=== PATIENT | male | born 1975 | race Caucasian/White ===

== ENCOUNTER 2016-12-22 09:08 | Day surgery (SDC) | payer MEDICAID ==
[~2016-12-22 09:08] MED LIST: HEPARIN SODIUM,PORCINE 5,000 UNIT/ML 1 ML VIAL SQ ONE; Pre Op ABX Message 1 EACH MISC MISCELLANE ONE
[2016-12-22] MEDS ORDERED: ONDANSETRON 4 MG/2 ML VIAL IVP ONE (09:29)
[2016-12-22] MEDS ORDERED: LACTATED RINGERS 1,000 ML IV SCH (09:29)
[2016-12-22] MEDS ORDERED: DEXAMETHASONE SOD PHOSPHATE 10 MG/ML 1 ML VIAL IV ONE (09:29)
[2016-12-22] MEDS ORDERED: HYDROmorphone 1 MG/ML 1 ML SYRINGE IVP PRN (09:29)
[2016-12-22] MEDS ORDERED: LIDOCAINE 1% 20 ML VIAL (10MG/ML) FOR IV START INTRADERMA ONE (09:58)
[2016-12-22] MEDS ORDERED: ceFAZolin 3 GM in SODIUM CHLORIDE 0.9% 100 ML IVPB ONE (10:00)
[2016-12-22 10:04] LABS: Glucose,Whole Blood 144 mg/dL (75-99)
--- NOTE | 2016-12-22 11:22 | P.GSHP ---
History of Present Illness H&P Date: 12/22/16 Chief Complaint: Incisional hernia 's is a 41-year-old male presents today for laparoscopic robotic-assisted repair of incisional hernia. Patient developed an incisional hernia at his then umbilicus after laparoscopic cholecystectomy. - Constitutional Constitutional: Reports as per HPI Past Medical History Past Medical History: No Reported History Additional Past Medical History / Comment(s): varicose veins History of Any Multi-Drug Resistant Organisms: None Reported Past Surgical History: Back Surgery, Cholecystectomy Past Psychological History: No Psychological Hx Reported Smoking Status: Never smoker Past Alcohol Use History: Occasional Past Drug Use History: None Reported Medications and Allergies Home Medications Medication Instructions Recorded Confirmed Type Aspirin 324 mg PO DAILY 10/14/15 10/14/15 History metFORMIN HCL [Metformin HCl] 500 mg PO BID 12/22/16 12/22/16 History Allergies Allergy/AdvReac Type Severity Reaction Status Date / Time pseudoephedrine HCl AdvReac DIZZY Verified 10/14/15 17:47 [From [facility]] Surgical - Exam Vital Signs Temp Pulse Resp BP Pulse Ox 97.7 F 77 18 144/84 95 12/22/16 09:42 12/22/16 09:42 12/22/16 09:42 12/22/16 09:42 12/22/16 09:42 - General well developed, no distress - Eyes PERRL - ENT normal pinna - Neck no masses - Respiratory normal expansion - Cardiovascular Rhythm: regular - Abdomen Abdomen: soft, non tender Hernia: incisional, reducible Results - Labs Abnormal Lab Results - Last 24 Hours (Table) 12/22/16 Range/Units 09:54 POC Glucose (mg/dL) 144 H (75-99) mg/dL Assessment and Plan Plan: Incisional hernia. We'll perform laparoscopic robotic-assisted repair.
[2016-12-22] MEDS ORDERED: MIDAZOLAM 2 MG/2 ML VIAL ONE (11:30)
[2016-12-22] MEDS ORDERED: LIDOCAINE 1% INJ 10MG/ML (20 ML MDV) ONE (11:30)
[2016-12-22] MEDS ORDERED: NEOSTIGMINE 1 MG/ML 10 ML VIAL ONE (11:30)
[2016-12-22] MEDS ORDERED: SUCCINYLCHOLINE CHLORIDE VIAL 200 MG/10 ML VIAL IV ONE (11:30)
[2016-12-22] MEDS ORDERED: ePHEDrine 50 MG/ML 1 ML AMP ONE (11:30)
[2016-12-22] MEDS ORDERED: HYDROmorphone (PF) 1 MG/ML ONE (11:30)
[2016-12-22] MEDS ORDERED: GLYCOPYRROLATE 0.2 MG/ML 2 ML VIAL ONE (11:30)
[2016-12-22] MEDS ORDERED: PROPOFOL 10 MG/ML 20 ML VIAL IV ONE (11:30)
[2016-12-22] MEDS ORDERED: ROCURONIUM BROMIDE 10 MG/ML 10 ML VIAL IV ONE (11:30)
[2016-12-22] MEDS ORDERED: fentaNYL (PF) 50 MCG/ML 2 ML AMP ONE (11:30)
[2016-12-22] MEDS ORDERED: BUPIVACAIN-EPI 0.25%-1:200,000 30 ML VIAL SQ ONE (11:55)
[2016-12-22] MEDS ORDERED: LACTATED RINGERS 1,000 ML IV ONE (12:33)
--- NOTE | 2016-12-22 12:55 | P.OP ---
Date of Procedure: 12/22/16 Preoperative Diagnosis: Incarcerated incisional hernia Postoperative Diagnosis: Incarcerated incisional hernia Procedure(s) Performed: Laparoscopic robotic-assisted repair of incarcerated incisional hernia Partial greater omentectomy Implants: Anesthesia: JOEL Surgeon: Héctor Yen Estimated Blood Loss (ml): 10 Pathology: other (Greater omentum) Condition: stable Disposition: PACU Indications for Procedure: Operative Findings: Description of Procedure: The patient's placed on the operative table in the supine position. He received general anesthesia. His abdomen was prepped and draped usual sterile fashion. Patient had incarcerated incisional hernia located above. Using a 5 mm optical trocar the peritoneal cavity is entered in the left upper quadrant after adequate insufflation a another 8 mm trocar was placed in the left lower quadrant and a 12 mm trochars placed left lateral position and the initial 5 mm trocar was replaced with millimeters robotic trocar. A shunt placed left side up position and then docked to the robot. Patient had an incarcerated hernia. There was omentum seen going into the hernia. Using the robotic cautery and fenestrated bipolar the omentum was reduced. A portion of it was not viable and this was excised. The fascial defect was then closed using oh the lock suture and then the repair was buttressed with ventral light ST mesh secured with 20 the lock suture. The patient was undocked the robot. At this point the needles were withdrawn. The omentum was brought up through a Endo Catch bag and then the the 12 mm trocar site was closed with Salvador Nugent and 0 Ethibond suture. The other trochars withdrawn. Skin was closed interrupted 3- 0 Monocryl suture Dermabond was applied. Patient top she will was sent to recovery in stable condition.
[2016-12-22 13:28] VITALS: TEMP 97.2
[2016-12-22 13:46] LABS: Glucose,Whole Blood 176 mg/dL (75-99)
[2016-12-22] MEDS ORDERED: KETOROLAC 30 MG/ML 1 ML VIAL IVP ONE (13:56)
[2016-12-22 14:27] VITALS: RESP 18
[2016-12-22 14:59] VITALS: PULSE 78
[2016-12-22 15:00] VITALS: BP 138/89
== END 2016-12-22 15:14 | disposition home or self-care (01) ==
LOC: OR 09:08
PROVIDERS: ATTEND Surgery
DX: K43.0 Incisional hernia with obstruction, without gangrene (principal); Z79.82 Long term (current) use of aspirin; E11.9 Type 2 diabetes mellitus without complications; Z79.84 Long term (current) use of oral hypoglycemic drugs; Z79.899 Other long term (current) drug therapy; Z88.8 Allergy status to other drugs, medicaments and biological substances
CPT/HCPCS: 49655; S2900; 88305

== ENCOUNTER → 2018-03-31 | Outpatient (CLI) | payer MEDICAID | END | disposition home or self-care (01) | LOC: LABPAT 10:59 | PROVIDERS: ATTEND Surgery | DX: Z01.818 Encounter for other preprocedural examination (principal) | CPT/HCPCS: 93005 ==

== ENCOUNTER 2018-04-01 06:51 | Day surgery (SDC) | payer MEDICAID ==
[2018-03-29 10:47] VITALS: BMI 51.2
[~2018-04-01 06:51] MED LIST changes: +DEXAMETHASONE SOD PHOSPHATE 10 MG/ML 1 ML VIAL IV ONE; +LACTATED RINGERS 1,000 ML IV SCH; +LIDOCAINE 1% 20 ML VIAL (10MG/ML) FOR IV START INTRADERMA PRN; +MIDAZOLAM 2 MG/2 ML VIAL IV PRN; +fentaNYL (PF) 50 MCG/ML 2 ML AMP IV PRN
[2018-04-01 07:14] VITALS: RESP 16; TEMP 98.1
[2018-04-01 07:15] LABS: Glucose,Whole Blood 245 mg/dL (75-99)
--- NOTE | 2018-04-01 08:01 | P.GSHP ---
History of Present Illness H&P Date: 04/01/18 Chief Complaint: Lipoma of back This is a 43-year-old male who's developed a 10 cm back lipoma. He presents today for excision. Past Medical History Past Medical History: Diabetes Mellitus Additional Past Medical History / Comment(s): varicose veins History of Any Multi-Drug Resistant Organisms: None Reported Past Surgical History: Back Surgery, Cholecystectomy, Hernia Repair Past Anesthesia/Blood Transfusion Reactions: No Reported Reaction Smoking Status: Never smoker - Past Family History Mother Family Medical History: No Reported History Medications and Allergies Home Medications Medication Instructions Recorded Confirmed Type metFORMIN HCL [Metformin HCl] 500 mg PO BID 12/22/16 04/01/18 History Diclofenac Sodium [Voltaren] 75 mg PO BID 03/29/18 04/01/18 History tiZANidine [Zanaflex] 4 mg PO Q8HR PRN 03/29/18 04/01/18 History Allergies Allergy/AdvReac Type Severity Reaction Status Date / Time pseudoephedrine HCl AdvReac DIZZY Verified 03/29/18 10:41 [From [facility]] Surgical - Exam Vital Signs Temp Pulse Resp BP Pulse Ox 98.1 F 81 16 172/84 96 04/01/18 07:03 04/01/18 07:03 04/01/18 07:03 04/01/18 07:03 04/01/18 07:03 - General well developed, no distress - Eyes PERRL - ENT normal pinna - Neck no masses - Respiratory normal expansion - Cardiovascular Rhythm: regular - Abdomen Abdomen: soft, non tender - Integumentary 10 cm back lipoma. Results - Labs Abnormal Lab Results - Last 24 Hours (Table) 04/01/18 Range/Units 07:12 POC Glucose (mg/dL) 245 H (75-99) mg/dL Assessment and Plan Assessment: Back lipoma. We'll perform excision.
[2018-04-01] MEDS ORDERED: MIDAZOLAM 2 MG/2 ML VIAL ONE (08:04)
[2018-04-01] MEDS ORDERED: LIDOCAINE 1% INJ 10MG/ML (20 ML MDV) ONE (08:04)
[2018-04-01] MEDS ORDERED: KETAMINE 10 MG/ML 20 ML VIAL ONE (08:04)
[2018-04-01] MEDS ORDERED: fentaNYL (PF) 50 MCG/ML 2 ML AMP ONE (08:04)
[2018-04-01] MEDS ORDERED: PROPOFOL 10 MG/ML 20 ML VIAL IV ONE (08:04)
[2018-04-01] MEDS ORDERED: BUPIVACAIN-EPI 0.25%-1:200,000 30 ML VIAL SQ ONE ×3 (08:16→08:24)
[2018-04-01] MEDS ORDERED: SODIUM CHLORIDE 0.9% 50 ML with ceFAZolin 3,000 MG IV ONE ×4 (08:29)
--- NOTE | 2018-04-01 09:13 | P.OP ---
Date of Procedure: 04/01/18 Preoperative Diagnosis: Right back lipoma Postoperative Diagnosis: Right back lipoma Procedure(s) Performed: Excision of right back lipoma Anesthesia: MAC Surgeon: Héctor Yen Estimated Blood Loss (ml): 10 Pathology: other (Right back lipoma) Condition: stable Disposition: PACU Description of Procedure: Patient's placed on the operative table in the right lateral position. His right back was prepped and draped usual fashion. The skin was anesthetized 1% local Xylocaine. A skin incision was made 15 blade. Then using cautery and subcutaneous tissue divided. The lipoma was visualized. Lipoma was dissected using cautery. Hemostasis was achieved with cautery. The deep layer was closed with 0 Vicryl. Skin was closed interrupted 3-0 Monocryl suture Dermabond was applied. Patient top she will was sent to recovery in stable condition.
[2018-04-01 09:20] LABS: Glucose,Whole Blood 273 mg/dL (75-99)
[2018-04-01] MEDS ORDERED: INSULIN ASPART 100 UNIT/ML 1 ML 10 ML VIAL SQ ONE (09:33)
[2018-04-01 10:03] LABS: Glucose,Whole Blood 326 mg/dL (75-99)
[2018-04-01 10:18] VITALS: BP 123/78; PULSE 72
--- NOTE | 2018-04-05 19:17 | CDI ---
Outpatient Documentation Clarification Form Date: 04/05/18 CDS/Urban Planning Professor Name: Nanci Robins Phone: If any questions, call Gisele Castro Machining Technician at [phone] Patient Name: Walt Wong Admit Date: 04/01/18 Discharge Date: 04/01/18 ATTENTION: The [facility] Coding Staff appreciate your assistance in clarifying documentation. Please respond to the clarification below the line at the bottom and electronically sign. The [facility] Coding staff will review the response and follow-up if needed. Please note: Queries are made part of the Legal Health Record. If you have any questions, please contact the Machining Technician. Dear Dr. Yen, 1. What is the size of the excised lipoma, including margins? 2. What is the size of the closure/repair? Thank you for your kind consideration. The excised lipoma was approximately 7 x 4 cm. The closure was approximately 10 cm in length. MTDD
== END 2018-04-01 11:17 | disposition home or self-care (01) ==
LOC: OR 06:51
PROVIDERS: ATTEND Surgery
DX: D17.1 Benign lipomatous neoplasm of skin and subcutaneous tissue of trunk (principal); E11.9 Type 2 diabetes mellitus without complications; I10 Essential (primary) hypertension; E66.01 Morbid (severe) obesity due to excess calories; Z68.43 Body mass index [BMI] 50.0-59.9, adult; Z79.84 Long term (current) use of oral hypoglycemic drugs; Z79.899 Other long term (current) drug therapy; Z90.49 Acquired absence of other specified parts of digestive tract; Z88.8 Allergy status to other drugs, medicaments and biological substances
CPT/HCPCS: 11406; 12034; 88304; J2250; J1644; J1100; J2001; J3010; J0690; J2704

== ENCOUNTER 2018-04-07 18:50 | Emergency (ER) | payer MEDICAID ==
[2018-04-07 18:57] VITALS: RESP 18
--- NOTE | 2018-04-07 20:17 | ED ---
General Adult HPI - General Chief complaint: Recheck/Abnormal Lab/Rx Stated complaint: post op issue Time Seen by Provider: 04/07/18 19:09 Source: patient Mode of arrival: ambulatory Limitations: no limitations - History of Present Illness Initial comments: 43-year-old male patient presents to the emergency department today for drainage from a surgical incision site. Patient had a lipoma removed from the right side of his mid back [address] Yen. Patient states that things have been going well after the surgery however today he started to have drainage from the site. Patient states that he can feel the drainage pouring down his back and it did soak through his shirt. He states that the drainage did have some presence of blood however did not seem to have pus. Patient denies any fevers or chills. Denies any significant pain to the site. States that he was evaluated by Dr. Yen this morning and his exam was fine. Patient denies any recent rash, shortness breath, chest pain, abdominal pain, nausea, vomiting, diarrhea, constipation, back pain, numbness, tingling, dizziness, weakness, hematuria, dysuria, urinary urgency, urinary frequency, headache, visual changes, or any other complaints. - Related Data Home Medications Medication Instructions Recorded Confirmed metFORMIN HCL [Metformin HCl] 500 mg PO BID 12/22/16 04/07/18 Previous Rx's Medication Instructions Recorded Cephalexin [Keflex] 500 mg PO Q6H #40 cap 04/07/18 Allergies Allergy/AdvReac Type Severity Reaction Status Date / Time pseudoephedrine HCl AdvReac DIZZY Verified 04/07/18 19:14 [From [facility]] Review of Systems ROS Statement: Those systems with pertinent positive or pertinent negative responses have been documented in the HPI. ROS Other: All systems not noted in ROS Statement are negative. Past Medical History Past Medical History: Diabetes Mellitus Additional Past Medical History / Comment(s): varicose veins History of Any Multi-Drug Resistant Organisms: None Reported Past Surgical History: Back Surgery, Cholecystectomy, Hernia Repair Additional Past Surgical History / Comment(s): lipoma removed on back Past Anesthesia/Blood Transfusion Reactions: No Reported Reaction Past Psychological History: No Psychological Hx Reported Smoking Status: Never smoker Past Alcohol Use History: Occasional Past Drug Use History: None Reported - Past Family History Mother Family Medical History: No Reported History General Exam Limitations: no limitations General appearance: alert, in no apparent distress, other (This is a well- developed, well-nourished adult male patient in no acute distress. Vital signs upon presentation are temperature 98.3F, pulse 90, respirations 18, blood pressure 110/77, pulse ox 96% on room air.) Eye exam: Present: normal appearance, PERRL, EOMI. Absent: scleral icterus, conjunctival injection, periorbital swelling ENT exam: Present: normal exam, normal oropharynx, mucous membranes moist Respiratory exam: Present: normal lung sounds bilaterally. Absent: respiratory distress, wheezes, rales, rhonchi, stridor Cardiovascular Exam: Present: regular rate, normal rhythm, normal heart sounds. Absent: systolic murmur, diastolic murmur, rubs, gallop, clicks GI/Abdominal exam: Present: soft, normal bowel sounds. Absent: distended, tenderness, guarding, rebound, rigid Back exam: Present: other (Patient has a 4 cm incision to the right mid back. There is some surrounding soft tissue swelling. Small amount of serosanguineous drainage. There is surrounding erythema, warmth to touch. No evidence of purulent drainage.) Neurological exam: Present: alert, oriented X3, CN II-XII intact Psychiatric exam: Present: normal affect, normal mood Skin exam: Present: warm, dry, intact, normal color. Absent: rash Course Vital Signs 04/07/18 04/07/18 18:55 20:39 Temperature 98.3 F 99.1 F Pulse Rate 90 84 Respiratory 18 18 Rate Blood Pressure 110/77 141/74 O2 Sat by Pulse 96 96 Oximetry Medical Decision Making - Medical Decision Making 43-year-old male patient presented to the emergency department today for evaluation of drainage from an incision to his right back. Physical examination did reveal a 4 cm vertical incision to the right mid back. There was a small amount of serosanguineous drainage. Minimal surrounding erythema and some soft tissue swelling. Patient is afebrile, vital signs are stable. We did discuss that his symptoms most likely related to ruptured seroma. Given the presence of erythema surrounding the incision site we will treat her for mild cellulitis. Patient is instructed to follow-up with Dr. Yen for recheck as soon as possible. Return parameters were discussed in detail. He verbalizes understanding and agrees with this plan. Disposition Clinical Impression: Seroma Disposition: HOME SELF-CARE Condition: Good Instructions: Seroma (DC) Additional Instructions: Take medications as directed. Follow-up with your surgeon for recheck as an as possible. Return here immediately for any new, worsening, or concerning symptoms. Prescriptions: Cephalexin [Keflex] 500 mg PO Q6H #40 cap Is patient prescribed a controlled substance at d/c from ED?: No Referrals: Jayce Barrow MD [Primary Care Provider] - 1-2 days Héctor Yen MD [STAFF PHYSICIAN] - 1-2 days Time of Disposition: 20:17
[2018-04-07] MEDS ORDERED: CEPHALEXIN 500MG STARTER PACK 4 CAP BTL PO STA (20:18)
[2018-04-07 20:41] VITALS: BP 141/74; PULSE 84; TEMP 99.1
== END 2018-04-07 20:43 | disposition home or self-care (01) ==
LOC: EC 18:50
DX: L76.34 Postprocedural seroma of skin and subcutaneous tissue following other procedure (principal); Y83.9 Surgical procedure, unspecified as the cause of abnormal reaction of the patient, or of later complication, without mention of misadventure at the time of the procedure; E11.9 Type 2 diabetes mellitus without complications; Z79.84 Long term (current) use of oral hypoglycemic drugs; Z88.8 Allergy status to other drugs, medicaments and biological substances
CPT/HCPCS: 99282

== ENCOUNTER 2018-04-13 11:51 | Emergency (ER) | payer MEDICAID ==
[2018-04-13] MEDS ORDERED: SULFAMETHOX-TMP 800-160MG 1 EACH TAB PO STA (12:16)
[2018-04-13 12:24] VITALS: BP 135/84; PULSE 82; RESP 18; TEMP 96.6
--- NOTE | 2018-04-13 12:38 | ED ---
Skin/Abscess/FB HPI - General Chief complaint: Skin/Abscess/Foreign Body Stated complaint: Infection in incision Time Seen by Provider: 04/13/18 12:00 Source: patient, RN notes reviewed Mode of arrival: ambulatory Limitations: no limitations - History of Present Illness Initial comments: This is a 43-year-old male who presents to the emergency department with chief complaint of surgical incision infection. Patient states a week and half ago he had lipoma removal on the right side of his back performed by Dr. Yen. He states he was seen here last week when it began to drain serous fluid and he was placed on Keflex. Patient states that over the past 2 days the drainage has decreased but he noticed that the area became very swollen. He states today he bent over and the incision "burst" and started draining purulent material. Patient denies any fevers or chills. He states he has been taking his temperature and it has been normal. He denies any chest pain or shortness of breath, abdominal pain, nausea or vomiting. - Related Data Previous Rx's Medication Instructions Recorded Cephalexin [Keflex] 500 mg PO Q6H #40 cap 04/07/18 Sulfamethox-Tmp 800-160Mg [Bactrim 1 tab PO Q12HR #20 tab 04/13/18 DS 800-160 mg] Allergies Allergy/AdvReac Type Severity Reaction Status Date / Time pseudoephedrine HCl AdvReac DIZZY Verified 04/13/18 12:20 [From [facility]] Review of Systems ROS Statement: Those systems with pertinent positive or pertinent negative responses have been documented in the HPI. ROS Other: All systems not noted in ROS Statement are negative. Past Medical History Past Medical History: Diabetes Mellitus Additional Past Medical History / Comment(s): varicose veins History of Any Multi-Drug Resistant Organisms: None Reported Past Surgical History: Back Surgery, Cholecystectomy, Hernia Repair Additional Past Surgical History / Comment(s): lipoma removed on back Past Anesthesia/Blood Transfusion Reactions: No Reported Reaction Past Psychological History: No Psychological Hx Reported Smoking Status: Never smoker Past Alcohol Use History: Rare Past Drug Use History: None Reported - Past Family History Mother Family Medical History: No Reported History General Exam - General Exam Comments Initial Comments: General: Awake and alert, well-developed; in no apparent distress. Does not appear acutely ill. HEENT: Head atraumatic, normocephalic. Pupils are equal, round and reactive to light. Extraocular movements intact. Oropharynx moist without erythema or exudate. Neck: Supple. Normal ROM. Cardiovascular: Regular rate and rhythm. No murmurs, rubs or gallops. Chest symmetrical. Respiratory: Lungs clear to auscultation bilaterally. No wheezes, rales or rhonchi. Normal respiratory effort with no use of accessory muscles. Musculoskeletal: Normal ROM, no tenderness bilateral upper and lower extremities. Ambulating normally. Skin: Approximately 8 cm vertical incision right mid back with purulent drainage from the superior part of the incision. There is surrounding fluctuance and erythema. Neurological: Alert and oriented x3. CN II-XII grossly intact. Speech is fluent and answers are appropriate. No focal neuro deficits. Psychiatric: Normal mood and affect. No overt signs of depression or anxiety noted. Limitations: no limitations Course Vital Signs 04/13/18 12:16 Temperature 96.6 F L Pulse Rate 82 Respiratory 18 Rate Blood Pressure 135/84 Medical Decision Making - Medical Decision Making This is a 43-year-old male who presents to the emergency department with chief complaint of incision site infection. Patient has been taking Keflex since last week. Over the past 2 days patient has noticed swelling surrounding the incision site. Today, patient states that the incision site "burst" and started draining purulent material. A significant amount of purulent material was drained from the site. Aerobic wound culture is pending. Patient will be placed on Bactrim. Recommended he follow up with Dr. Yen in the office within 1-2 days. Patient has been afebrile. Vital signs are stable. Return parameters were discussed. Patient is in no acute distress and will be discharged home at this time. He is in agreement with plan and voices understanding. All questions were answered. Disposition Clinical Impression: Incisional abscess Disposition: HOME SELF-CARE Condition: Good Instructions: Abscess (ED), Warm Compress or Soak (ED) Additional Instructions: Please take medications as prescribed. As discussed, please follow-up with Dr. Yen within 1-2 days. Please follow up with primary care provider within 1- 2 days. Return to emergency department if symptoms should worsen or any concerns arise. Prescriptions: Sulfamethox-Tmp 800-160Mg [Bactrim DS 800-160 mg] 1 tab PO Q12HR #20 tab Is patient prescribed a controlled substance at d/c from ED?: No Referrals: Jayce Barrow MD [Primary Care Provider] - 1-2 days Time of Disposition: 12:37
== END 2018-04-13 12:47 | disposition home or self-care (01) ==
LOC: EC 11:51
DX: T81.4XXA Infection following a procedure, initial encounter (principal); Z88.8 Allergy status to other drugs, medicaments and biological substances; Z98.890 Other specified postprocedural states
CPT/HCPCS: 87070; 87205; 99283

== ENCOUNTER → 2018-04-19 | Outpatient (CLI) | payer MEDICAID ==
--- NOTE | 2018-04-19 13:53 | US ---
EXAMINATION TYPE: US liver DATE OF EXAM: 04/19/2018 COMPARISON: NONE CLINICAL HISTORY: Abnormal Liver Function Tests R94.5. elevated lft's, no symptoms, cholecystectomy EXAM MEASUREMENTS: Liver Length: 19.1 cm Gallbladder Wall: Surgically absent CBD: 0.5 cm Right Kidney: 14.2 x 5.8 x 7.1 cm *morbidly obese patient Pancreas: limited views seen Liver: difficult to penetrate due to habitus and bowel gas Gallbladder: Surgically absent Evidence for sonographic Jackson's sign: no CBD: wnl Right Kidney: large in size There is no ascites. IMPRESSION: Exam is limited technically. Findings suggest hepatocellular disease, possible hepatic st eatosis.
== END | disposition home or self-care (01) ==
LOC: RADUSWWP 07:43
PROVIDERS: ATTEND Internal Medicine
DX: R94.5 Abnormal results of liver function studies (principal)
CPT/HCPCS: 76705

== ENCOUNTER → 2018-04-26 | Outpatient (CLI) | payer MEDICAID ==
[2018-04-26 06:46] LABS: Blood Urea Nitrogen 15 mg/dL (9-20)
== END | disposition home or self-care (01) ==
LOC: RADMRIMAIN 06:14
PROVIDERS: ATTEND Physical Medicine & Rehabilitation
DX: M47.27 Other spondylosis with radiculopathy, lumbosacral region (principal); Z98.890 Other specified postprocedural states
CPT/HCPCS: 82565; 84520

== ENCOUNTER → 2018-07-28 | Outpatient (CLI) | payer MEDICAID ==
[2018-07-28 12:33] VITALS: BP 142/83; PULSE 88; RESP 16
--- NOTE | 2018-07-28 13:11 | P.PAINCN ---
History of Present Illness - Reason for Consult Consult date: 07/28/18 - History of Present Illness This is 43 years old male , with more than 6 months history of severe low back pain with radiation to the right lower extremity, pain started in January 2018, he denies any initiating event,the pain is constant interfering with quality of life, he denies any motor or sensory deficit, he denies any fever or night sweats, the pain mainly in the low back area radiated to the right buttock, and to the posterior aspect of his right lower extremity, patient reported that he had back surgery ( discectomy )more than 10 years ago, and he did fairly well after the surgery , and he used to have some back pain issues on and off , patient not able to function secondary to the intensity of the pain, patient denies any change in bowel movement or urination Past Medical History Past Medical History: Diabetes Mellitus Additional Past Medical History / Comment(s): varicose veins History of Any Multi-Drug Resistant Organisms: None Reported Past Surgical History: Back Surgery, Cholecystectomy, Hernia Repair Additional Past Surgical History / Comment(s): lipoma removed on back Past Anesthesia/Blood Transfusion Reactions: No Reported Reaction Past Psychological History: No Psychological Hx Reported Smoking Status: Never smoker Past Alcohol Use History: Rare Past Drug Use History: None Reported - Past Family History Mother Family Medical History: No Reported History Medications and Allergies Home Medications Medication Instructions Recorded Confirmed Type Ertugliflozin Pidolate [Steglatro] 15 mg PO DAILY 07/28/18 07/28/18 History Glimepiride [Amaryl] 1 mg PO BID 07/28/18 07/28/18 History Allergies Allergy/AdvReac Type Severity Reaction Status Date / Time pseudoephedrine HCl AdvReac DIZZY Verified 04/13/18 12:20 [From [facility]] Physical Exam Vitals: Vital Signs Pulse Resp BP Pulse Ox 07/28/18 12:21 88 16 142/83 96 Intake and Output 07/27/18 07/28/18 07/28/18 22:59 06:59 14:59 Other: Weight 181.437 kg Social history : not smoker , NO ETOH , NO Illegal drugs use . Review of Systems : 1- Constitutional : no chills , no fever , no night sweats , 2- Ears : no ear discharge , no change in hearing 3-Nose, Mouth ,Throat ; no bleeding gums, no sore throat , no epistaxis , 4-Cardiovascular : Denies chest pain, , no orthopnea , no palpitation 5-Respiratory : Denies cough , no dyspnea , no hemoptysis 6-Gastrointestinal :, no change in bowel habits , no coffee- ground emesis . 7-Genitourinary : No hematuria , no discharge , no incontinence, 8-Musculoskeletal : No gait dysfunction , report low back pain , 9- Neurological : no ataxia , no tremor , no sezure , 10-Psychatric , no suicidal ideation no hallucination 11- Endocrine : no cold intolerence , no polyuria , no polydypsia , 12-Hematologic : no easy bleeding , no easy brusing , 13-Allergic / immunology : no angioedema , no wheezing ,no allergic rhinitis 14-Integumentary : no brttle nails , no change hair / nails , no foot/leg ulcers . Physical Examinations : 1-Constitutional : Cooperative , not in acute distress . 2-HEENT : nech ; supple , no Lymphadenopathy , no Thyromegaly , :eyes , no icterus, no photophobia . ENT : , normal oropharynx , no Thrush 3- Respiratory : Chest clear to auscultations Bilaterally , no wheezing 4- Cardiovascular : regular rate and rhythem , S1 , S2 , no S3 , no S4. 5- Gastrointestinal: abdomen soft no tenderness , no organomegally . 6- Genitourinary : Defferred . 7-Integumentary : No cellulitis , no ulcers , normal skin turgor , no cyanotic . 8- neurologic : Cranial nerve II to XII intact , no focal neurological deffecit 9-psychatric : alert , oriented X 3 , appropriate affect , intact judgment and insight . 10-Lymphatic : no Lymphadenopathy. 11- musculoskeltal: Antalgic gait Lumber spine moter stegnth lower extremities ,thigh and legs 5/5 Right side , 5/5 Left side deep tendon reflexes : normal Knee Jerk , normal ankle Jerk positive lumber facet Loading Test on the right side Range of motion of the lumbar spine Flexion 30 degrees, extension 10 degrees strait leg raising test , positive at 30 degree on the right side Fabere test positive RT and positive LT . Sever tenderness over the Sacroiliac joint on the Right sides Results Comments: MRI of the lumbar spine= L4 5 disc herniation L5-S1 disc herniation and L4-L5 arthropathy and there is foraminal narrowing Assessment and Plan Plan: Assessment and plan=1-right sacroiliitis. 2-lumbar disc herniation at L4 5 and L5-S1. 3-lumbar spondylosis with lumbar facet arthropathy Patient had multifactorial cause causing his low back pain, but currently most of the pain is coming from the sacroiliac joint, patient could benefit from right sacroiliac joint steroid injection under fluoroscopy guidance, and if patient continued to have pain after the right sacroiliac joint injection, then we will go right -sided transforaminal epidural steroid injection L4 5 and L5-S1 , Time with Patient: Greater than 30 PQRS Measure Charge Sheet Measure #130: Documentation of Current Meds in Medical Chart: Patient's medications documented in chart Measure #226: Tobacco Use: Screen & Cessation Intervention: Pt not a tobacco user Measure #111: Pneumonia Vaccination: Pneumococcal vaccine NOT administered or previously given Measure #47: Advance Care Plan: Advance care planning discussed & documented, pt chose/unable to give Measure #412: Opioid Treatment Agreement: No documentation of signed opioid treatment agreement Measure #408: Opioid Therapy Follow-up Evaluation: Patient had NO f/u eval minimum every 3 months during opioid therapy Measure #317: Preventitive Care & Scrn High Bld Press & F/U: Pre-hypertensive or hypertensive BP documented, pt will f/u with PCP Measure #128: Body Mass Index (BMI) Screening & Follow-up: BMI documented ABOVE normal parameters - f/u documented Measure #131: Pain Assessment & Follow-up: Pain positive & plan documented, Follow-up scheduled Measure #431: Unhealthy Alcohol Use Preventative Care & Scrn: Patient not identified as an unhealthy alcohol user PQRS Narrative: Smoking Status Never smoker Do You Want the Pneumonia No Vaccine AT THIS TIME? Blood Pressure 142/83 Pain Intensity [Bilateral 2 Posterior Back] Scale Used Numeric (1 - 10) Hx Alcohol Use (MH) No Home Medications: Ambulatory Orders Ertugliflozin Pidolate [Steglatro] 15 mg PO DAILY 07/28/18 Glimepiride [Amaryl] 1 mg PO BID 07/28/18
== END | disposition home or self-care (01) ==
LOC: PNWHC3 12:13
PROVIDERS: ATTEND Specialist
DX: M51.27 Other intervertebral disc displacement, lumbosacral region (principal); M47.816 Spondylosis without myelopathy or radiculopathy, lumbar region; M46.96 Unspecified inflammatory spondylopathy, lumbar region; M46.1 Sacroiliitis, not elsewhere classified; E11.9 Type 2 diabetes mellitus without complications; Z88.8 Allergy status to other drugs, medicaments and biological substances; Z79.899 Other long term (current) drug therapy; Z90.49 Acquired absence of other specified parts of digestive tract; Z98.890 Other specified postprocedural states
CPT/HCPCS: 99211

== ENCOUNTER 2018-08-04 08:22 | Day surgery (SDC) | payer MEDICAID ==
[2018-08-02 08:57] VITALS: BMI 50.0
[~2018-08-04 08:22] MED LIST changes: -DEXAMETHASONE SOD PHOSPHATE 10 MG/ML 1 ML VIAL IV ONE; -HEPARIN SODIUM,PORCINE 5,000 UNIT/ML 1 ML VIAL SQ ONE; -LACTATED RINGERS 1,000 ML IV SCH; -LIDOCAINE 1% 20 ML VIAL (10MG/ML) FOR IV START INTRADERMA PRN; -MIDAZOLAM 2 MG/2 ML VIAL IV PRN; -Pre Op ABX Message 1 EACH MISC MISCELLANE ONE; +SODIUM CHLORIDE 0.9% 500 ML 500 ML IV SCH; -fentaNYL (PF) 50 MCG/ML 2 ML AMP IV PRN
[2018-08-04 08:39] VITALS: TEMP 97.5
[2018-08-04 08:48] LABS: Glucose,Whole Blood 163 mg/dL (75-99)
[2018-08-04] MEDS ORDERED: LIDOCAINE 1% 20 ML VIAL (10MG/ML) FOR IV START INTRADERMA ONE (08:48)
[2018-08-04] MEDS ORDERED: LACTATED RINGERS 1,000 ML IV ONE ×2 (08:48)
--- NOTE | 2018-08-04 09:17 | P.PCN ---
Date of Procedure: 08/04/18 Anesthesia: other (Conscious sedation) Description of Procedure: Procedure: Sacroiliac joint injection Preoperative diagnosis: Sacroiliitis Postoperative diagnosis: Sacroiliitis Complication: none Anesthesia: conscious sedation and local with 1% lidocaine Description of the procedure: procedure risk and benefits discussed with the patient, including but not limited, risk of infection and bleeding, and allergic reaction to the medication and incomplete pain relief. Patient agreed and signed consent. Patient was taken to the room and placed in a prone position. Chlorhexidine was used to cleanse the skin. Under sterile conditions patient skin was anesthetized 1% lidocaine. Subcutaneous tissues were also anesthetized with a total 5 mL of 1% lidocaine. After that 22-gauge spinal needle was advanced through the anesthetized location. Needle was advanced into the inferior portion of the sacroiliac joint. IV contrast was used to confirm spread within the joint. After adequate spread was achieved, 2.5 ML's of 0.5% ropivacaine with 40 mg of triamcinolone was injected into the joint. Patient tolerated the procedure well. Sent to the recovery room in stable condition. Patient will follow up in the clinic in 4-8 weeks' time
[2018-08-04] MEDS ORDERED: IV FLUID CONTINUATION 1,000 ML IV ONE (09:37)
[2018-08-04 10:07] VITALS: BP 125/74; PULSE 66; RESP 16
--- NOTE | 2018-08-04 12:01 | FL ---
Fluoroscopy HISTORY: Pain 6 seconds fluoroscopy time supplied to the referring clinician. 1 intraoperative C-arm images docume nt the procedure. See dictated report from anesthesia.
== END 2018-08-04 10:08 | disposition home or self-care (01) ==
LOC: ORPAIN 08:22
PROVIDERS: ATTEND Hospitalist
DX: M46.1 Sacroiliitis, not elsewhere classified (principal); M51.26 Other intervertebral disc displacement, lumbar region; M51.27 Other intervertebral disc displacement, lumbosacral region; M47.816 Spondylosis without myelopathy or radiculopathy, lumbar region; E11.9 Type 2 diabetes mellitus without complications; I83.90 Asymptomatic varicose veins of unspecified lower extremity; Z79.84 Long term (current) use of oral hypoglycemic drugs; Z79.899 Other long term (current) drug therapy; Z90.49 Acquired absence of other specified parts of digestive tract
CPT/HCPCS: 27096; J3301

== ENCOUNTER → 2018-09-07 | Outpatient (CLI) | payer MEDICAID ==
--- NOTE | 2018-09-07 17:20 | US ---
EXAMINATION TYPE: US venous doppler duplex LE LT DATE OF EXAM: 09/07/2018 4:49 PM COMPARISON: NONE CLINICAL HISTORY: M79.662,R22.42 PAIN AND SWELLIN IN BOTH LEGS. SIDE PERFORMED: Left TECHNIQUE: The lower extremity deep venous system is examined utilizing real time linear array sonog raul with graded compression, doppler sonography and color-flow sonography. VESSELS IMAGED: External Iliac Vein (EIV) Common Femoral Vein Deep Femoral Vein Greater Saphenous Vein * Femoral Vein Popliteal Vein Small Saphenous Vein * Proximal Calf Veins (* superficial vessels) Left Leg: Negative for DVT Suboptimal images limited by body habitus, 400#, no evience of thrombus as scanned IMPRESSION: No evidence of deep venous thrombosis in the left leg.
== END | disposition home or self-care (01) ==
LOC: RADUSWWP 16:27
PROVIDERS: ATTEND Internal Medicine
DX: M79.662 Pain in left lower leg (principal); R22.42 Localized swelling, mass and lump, left lower limb; Z88.8 Allergy status to other drugs, medicaments and biological substances

== ENCOUNTER → 2018-12-01 | Outpatient (CLI) | payer MEDICAID ==
[2018-12-01 11:50] VITALS: BP 123/86; PULSE 71; RESP 16
--- NOTE | 2018-12-01 12:05 | P.PAINPG ---
Subjective Progress Note Date: 12/01/18 This is a follow-up visit for this 43 years old male, on a history of severe low back pain is diagnosed with right sacroiliitis, and he hasn't lumbar herniated disc disease at L4-L5 and L5-S1, in July 2018 and we have done right side sacroiliac joint steroid injection, and his pain improved completely, and he was doing very well until a few weeks ago, when he was helping his mom to move, he did some heavy lifting and he started having severe low back pain localized in the mid line , and the pain was like electric shock sensation in the low back area, pain was constant and increases with any activity, he tried Medrol dose pack without any significant improvement, he continued to have severe low back pain and the pain increases with any activity, he denies any motor or sensory deficit he denies any change in the bowel movements or urination, and no fever or night sweats. Objective - Vital Signs Vital signs: Vital Signs Temp Pulse 71 12/01/18 11:43 Resp 16 12/01/18 11:43 BP 123/86 12/01/18 11:43 Pulse Ox 97 12/01/18 11:43 Intake & Output 11/30/18 12/01/18 12/01/18 18:59 06:59 18:59 Weight 181.437 kg - Exam Physical Examinations : -Constitutiona : Cooperative , not in acute distress . -HEENT : nech ; supple , no Lymphadenopathy , normal thyroid size . eyes : no ptosis , no icterus, no photophobia . ENT : normal of hearing , normal oropharynx , no Thrush . - Respiratory : Chest clear to auscultations Bilaterally , no wheezing , no Rhonchi . - Cardiovascula : regular rate and rhythem , S1 , S2 , no S3 , no S4. - Gastrointestina : abdomen soft no tenderness , bowel sounds , no organomegally . - Genitourinary : Defferred . - neurologic : Cranial nerve II to XII intact , no focal neurological deffecit . -psychatric : alert , oriented X 3 , appropriate affect , intact judgment and insight . -Lymphatic : no Lymphadenopathy . - musculoskeltal : Lumber spine moter stegnth lower extremities ,thigh and legs 5/5 Right side , 5/5 Left side deep tendon reflexes : normal Knee Jerk , normal ankle Jerk lumber facet Loading Test negative Range of motion of the lumbar spine Flexion 30 degrees, extension 10 degrees strait leg raising test , positive at 30 degree Fabere test positive RT and positive LT . No tenderness over the Sacroiliac joint on the R and L sides Assessment and Plan Plan: Assessment and plan= chronic low back pain secondary to lumbar herniated disc disease , right sacroiliitis . Patient was admitted with candidate to have lumbar epidural steroid injections under fluoroscopy guidance at L5-S1 Procedure risk and benefits and alternatives discussed with the patient he agreed with the preceding Time with Patient: Less than 30 PQRS Measure Charge Sheet Measure #130: Documentation of Current Meds in Medical Chart: Patient's medications documented in chart Measure #226: Tobacco Use: Screen & Cessation Intervention: Pt not a tobacco user Measure #111: Pneumonia Vaccination: Pneumococcal vaccine NOT administered or previously given Measure #47: Advance Care Plan: Advance care planning discussed & documented, pt chose/unable to give Measure #412: Opioid Treatment Agreement: No documentation of signed opioid treatment agreement Measure #408: Opioid Therapy Follow-up Evaluation: Patient had NO f/u eval minimum every 3 months during opioid therapy Measure #317: Preventitive Care & Scrn High Bld Press & F/U: Normal blood pressure, f/u not required Measure #128: Body Mass Index (BMI) Screening & Follow-up: BMI documented ABOVE normal parameters - f/u documented Measure #131: Pain Assessment & Follow-up: Pain positive & plan documented, Follow-up scheduled Measure #431: Unhealthy Alcohol Use Preventative Care & Scrn: Patient not identified as an unhealthy alcohol user PQRS Narrative: Smoking Status Former smoker Blood Pressure 123/86 Pain Intensity [Bilateral 3 Lower Back] Scale Used Numeric (1 - 10) Hx Alcohol Use (MH) No Home Medications: Ambulatory Orders Ertugliflozin Pidolate [Steglatro] 15 mg PO DAILY 07/28/18 Glimepiride [Amaryl] 1 mg PO BID 07/28/18 Ibuprofen [Motrin] 400 mg PO BID PRN 12/01/18 Controlled Substance Measures - Controlled Substance Measures Is patient prescribed a controlled substance at discharge?: No
== END ==
LOC: PNWHC3 11:34
PROVIDERS: ATTEND Specialist
DX: G89.29 Other chronic pain (principal); M51.26 Other intervertebral disc displacement, lumbar region; M46.1 Sacroiliitis, not elsewhere classified; Z79.891 Long term (current) use of opiate analgesic; Z87.891 Personal history of nicotine dependence; Z79.899 Other long term (current) drug therapy
CPT/HCPCS: 99211

== ENCOUNTER 2018-12-14 08:01 | Day surgery (SDC) | payer MEDICAID ==
[2018-12-14 08:16] VITALS: TEMP 97.8
[2018-12-14] MEDS ORDERED: LACTATED RINGERS 1,000 ML IV ONE (08:17)
[2018-12-14 08:22] LABS: Glucose,Whole Blood 143 mg/dL (75-99)
--- NOTE | 2018-12-14 08:45 | P.PCN ---
Date of Procedure: 12/14/18 Procedure(s) Performed: PREOPERATIVE DIAGNOSIS: Lumbar post laminectomy syndrome. POSTOPERATIVE DIAGNOSIS: Lumbar post laminectomy syndrome. PROCEDURE: 1. Caudal epidural steroid injection under fluoroscopic guidance. 2. Caudal epidurogra ANESTHESIA: Local with 1% lidocaine; 5ml for subcutaneous infiltrations and IV versed 2 mg ,and fentanyl 100 mcg EBL: None. PROCEDURE INDICATION: The patient with neuropathic pain radiating distally returns for caudal epidural steroid injection. PROCEDURE DESCRIPTION: The patient was seen and identified in the preoperative area. Risks, benefits, complications, and alternatives were discussed with the patient. The patient agreed to proceed with the procedure and signed the consent. IV was started, and vital signs were stable. Patient was taken to the OR and time out was completed. The patient was placed in the prone position on procedure table and a pillow was placed under the abdomen to reduce lumbar lordosis. The lumbosacral area was prepped and draped in the usual sterile fashion. Critical pause was taken. Vital signs were closely monitored during the procedure. Using lateral fluoroscopy the anterior-posterior plates of the sacrum were identified and the skin and deeper tissues corresponding into sacrococcygeal ligament were anesthetized using approximately 3 mL of 1% lidocaine. Then under fluoroscopy, a 3-1/2-inch 20-gauge Tuohy epidural needle was guided through the sacrococcygeal ligament, and into the epidural space. After negative aspiration, a 2 mL of omnipaque-180 contrast dye was injected with excellent epidurogram. Again after negative aspiration for CSF, blood, and with no paresthesias, Depo- Medrol 80mg, 2ml of 1% preservative free Lidocaine with 6 ml of preservative free normal saline(total of 10ml)solution was injected with washout of epidurogram. Needle was withdrawn intact. Skin was cleansed, and bandage was applied. COMPLICATIONS: None DISPOSITION / PLANS: The patient was placed in a supine position and transferred to the recovery area in a stable condition for observation and was discharged from the recovery room after meeting discharge criteria. Home discharge instructions given to the patient by the staff. The patient was reexamined prior to discharge. The patient will schedule a follow up in the clinic in 2-4 weeks. note = patient was scheduled to have lumbar epidural steroid injection at L5-S1, but 1 week placed patient in prone position showed the patient had lumbar laminectomy surgery done several years ago, and if we do standard technique L5- S1 epidural steroid injection, this increase the risk of postdural puncture headache, for this reason we chose to go caudel approach,
[2018-12-14] MEDS ORDERED: IV FLUID CONTINUATION 1,000 ML IV ONE ×2 (08:46)
--- NOTE | 2018-12-14 08:54 | FL ---
EXAMINATION TYPE: FL guided pain mgmt statistic DATE OF EXAM: 12/14/2018 CLINICAL HISTORY: Low back pain. TECHNIQUE: Fluoroscopy. COMPARISON: None. FINDINGS: Fluoroscopic guidance was provided during pain relief procedure performed by Dr. Espinoza . A total of 6 seconds of fluoroscopic time was utilized during the procedure and two spot images ar e acquired. Images acquired shows needle localization of the lumbosacral spine. IMPRESSION: As Above.
[2018-12-14 09:02] VITALS: BP 120/74; PULSE 69; RESP 18
== END 2018-12-14 09:16 | disposition home or self-care (01) ==
LOC: ORPAIN 08:01
PROVIDERS: ATTEND Specialist
DX: M96.1 Postlaminectomy syndrome, not elsewhere classified (principal); Z88.8 Allergy status to other drugs, medicaments and biological substances
CPT/HCPCS: 62323

== ENCOUNTER 2018-12-28 09:00 | Day surgery (SDC) | payer MEDICAID ==
[2018-12-28 09:30] VITALS: TEMP 97.3
--- NOTE | 2018-12-28 09:47 | P.PCN ---
Date of Procedure: 12/28/18 Description of Procedure: PREOPERATIVE DIAGNOSIS: Lumbar post laminectomy syndrome. POSTOPERATIVE DIAGNOSIS: Lumbar post laminectomy syndrome. PROCEDURE: 1. Caudal epidural steroid injection under fluoroscopic guidance. 2. Caudal epidurogra ANESTHESIA: Local with 1% lidocaine; 5ml for subcutaneous infiltrations PROCEDURE DESCRIPTION: The patient was seen and identified in the preoperative area. Risks, benefits, complications, and alternatives were discussed with the patient. The patient agreed to proceed with the procedure and signed the consent. Vital signs were stable. Patient was taken to the OR and time out was completed. The patient was placed in the prone position on procedure table and a pillow was placed under the abdomen to reduce lumbar lordosis. The lumbosacral area was prepped and draped in the usual sterile fashion. Critical pause was taken. Vital signs were closely monitored during the procedure. Using lateral fluoroscopy the anterior-posterior plates of the sacrum were identified and the skin and deeper tissues corresponding into sacrococcygeal ligament were anesthetized using approximately 5 mL of 1% lidocaine. Then under fluoroscopy, a 3-1/2-inch 20-gauge Tuohy epidural needle was guided through the sacrococcygeal ligament, and into the epidural space. After negative aspiration, a 2 mL of omnipaque-180 contrast dye was injected with excellent epidurogram. Again after negative aspiration for CSF, blood, and with no paresthesias, Depomedrol 40mg along with 2ml of 0.5% ropivacaine with 2 ml of preservative free normal saline (total of 5ml) solution was injected with washout of epidurogram. Needle was withdrawn intact. Skin was cleansed, and bandage was applied. COMPLICATIONS: None DISPOSITION / PLANS: The patient was placed in a supine position and transferred to the recovery area in a stable condition for observation and was discharged from the recovery room after meeting discharge criteria. Home discharge instructions given to the patient by the staff. The patient was reexamined prior to discharge. The patient will schedule a follow up in the clinic in 2-4 weeks.
[2018-12-28 09:49] LABS: Glucose,Whole Blood 149 mg/dL (75-99)
[2018-12-28 10:12] VITALS: BP 111/80; PULSE 72; RESP 16
--- NOTE | 2018-12-28 10:36 | FL ---
EXAMINATION TYPE: FL guided pain mgmt statistic DATE OF EXAM: 12/28/2018 CLINICAL HISTORY: Low back and sacral pain. TECHNIQUE: Fluoroscopy. COMPARISON: None. FINDINGS: Fluoroscopic guidance was provided during pain relief procedure performed by Dr. Bai . A total of 4 seconds of fluoroscopic time was utilized during the procedure and two spot images are acquired. Images acquired shows needle localization near lumbosacral junction and lower sacrum. IMPRESSION: As Above.
== END 2018-12-28 11:15 | disposition home or self-care (01) ==
LOC: ORPAIN 09:00
PROVIDERS: ATTEND Hospitalist
DX: M96.1 Postlaminectomy syndrome, not elsewhere classified (principal); M48.00 Spinal stenosis, site unspecified; Z88.8 Allergy status to other drugs, medicaments and biological substances
CPT/HCPCS: 62323; J1030; Q9966; C1894

== ENCOUNTER → 2019-03-07 | Outpatient (CLI) | payer MEDICAID ==
--- NOTE | 2019-03-07 11:09 | XR ---
EXAMINATION TYPE: XR ankle limited LT DATE OF EXAM: 03/07/2019 COMPARISON: NONE HISTORY: Ankle mortise pain. TECHNIQUE: 2 views left ankle were obtained. FINDINGS: No acute fracture or dislocation. Ankle mortise is intact. Mild degenerative changes are se en in the hindfoot and midfoot. Diffuse soft tissue edema which may be on basis of venous stasis. Sma ll plantar aspect calcaneal spur. IMPRESSION: No acute fracture or dislocation. Degenerative changes of the left ankle. Findings suggestive of venous stasis.
== END | disposition home or self-care (01) ==
LOC: RADXRMAIN 10:07
PROVIDERS: ATTEND Internal Medicine
DX: M19.072 Primary osteoarthritis, left ankle and foot (principal)

== ENCOUNTER → 2019-05-01 | Outpatient (CLI) | payer MEDICAID ==
--- NOTE | 2019-05-01 14:47 | XR ---
EXAMINATION TYPE: XR chest 2V DATE OF EXAM: 05/01/2019 COMPARISON: Chest x-ray June 20, 2013 HISTORY: Cough. History of recurrent pneumonia. TECHNIQUE: Frontal and lateral views of the chest are obtained. FINDINGS: There is no focal air space opacity, pleural effusion, or pneumothorax seen. Some eventrat ion right hemidiaphragm is redemonstrated. The cardiac silhouette size is within normal limits. Th e osseous structures are intact. IMPRESSION: No suspicious acute pulmonary process.
== END ==
LOC: RADXRMAIN 14:04
PROVIDERS: ATTEND Internal Medicine
DX: R05 Cough (principal)
CPT/HCPCS: 71046

== ENCOUNTER → 2019-05-22 | Outpatient (CLI) | payer MEDICAID | END | disposition home or self-care (01) | LOC: CPPFTMAIN 07:28 | PROVIDERS: ATTEND Internal Medicine | DX: J42 Unspecified chronic bronchitis (principal) | CPT/HCPCS: 94060; 94726; 94729 ==

== ENCOUNTER 2022-12-26 13:41 | Inpatient (IN) | payer BC ==
[2022-12-26] MEDS ORDERED: VANCOMYCIN IV PER PHARMACY 1 EACH MISC MISCELLANE PRN (14:01)
--- NOTE | 2022-12-26 14:12 | ED ---
General Adult HPI - General Chief complaint: Skin/Abscess/Foreign Body Stated complaint: Left arm infection Time Seen by Provider: 12/26/22 13:55 Source: patient, RN notes reviewed, old records reviewed Mode of arrival: ambulatory Limitations: no limitations - History of Present Illness Initial comments: 47 -year-old male presenting for evaluation of pain and swelling to the left upper extremity. Patient reports that he believes that he was bit or stung by an insect several days ago. He had developed purulent drainage and soft tissue swelling and erythema. He was seen by primary care and was given prescription for Keflex and Bactrim. He's been compliant with these medications over the past several days. He denies fever. He is a diabetic. Patient states that despite being on antibiotics the redness and swelling has significantly increased. - Related Data Home Medications Medication Instructions Recorded Confirmed Ertugliflozin Pidolate [Steglatro] 15 mg PO DAILY 07/28/18 12/28/18 Glimepiride [Amaryl] 1 mg PO BID 07/28/18 12/28/18 Allergies Allergy/AdvReac Type Severity Reaction Status Date / Time pseudoephedrine HCl AdvReac DIZZY Verified 12/26/22 13:54 [From [facility]] Review of Systems ROS Statement: Those systems with pertinent positive or pertinent negative responses have been documented in the HPI. ROS Other: All systems not noted in ROS Statement are negative. Past Medical History Past Medical History: Diabetes Mellitus Additional Past Medical History / Comment(s): varicose veins History of Any Multi-Drug Resistant Organisms: MRSA Date of last positivie culture/infection: 03/10/19 MDRO Source:: KNEE MRSA Past Surgical History: Back Surgery, Cholecystectomy, Hernia Repair Additional Past Surgical History / Comment(s): lipoma removed on back Past Anesthesia/Blood Transfusion Reactions: No Reported Reaction Past Psychological History: No Psychological Hx Reported Smoking Status: Never smoker Past Alcohol Use History: Rare Past Drug Use History: None Reported - Past Family History Mother Family Medical History: No Reported History General Exam Limitations: no limitations General appearance: alert, in no apparent distress Head exam: Present: atraumatic, normocephalic Eye exam: Present: normal appearance, PERRL ENT exam: Present: normal exam Neck exam: Present: normal inspection. Absent: tenderness, meningismus Respiratory exam: Present: normal lung sounds bilaterally. Absent: respiratory distress Cardiovascular Exam: Present: regular rate, normal rhythm GI/Abdominal exam: Present: soft. Absent: distended, tenderness Extremities exam: Present: other (Left upper extremity there is soft tissue swelling throughout. Erythema extending from the wrist to the mid upper arm. There is induration surrounding a abscess on the dorsal medial surface of the forearm. There is no fluctuance, no drainable abscess at this time.) Course Vital Signs 12/26/22 13:52 Temperature 99.1 F Pulse Rate 72 Respiratory 18 Rate Blood Pressure 140/82 O2 Sat by Pulse 99 Oximetry Medical Decision Making - Medical Decision Making Was pt. sent in by a medical professional or institution (, PA, MULTIGRAPHER, urgent care, hospital, or skilled nursing...) When possible be specific @ -No Did you speak to anyone other than the patient for history (EMS, parent, family, police, friend...)? What history was obtained from this source @ -No Did you review nursing and triage notes (agree or disagree)? Why? @ -I reviewed and agree with nursing and triage notes Were old charts reviewed (outside hosp., previous admission, EMS record, old EKG, old radiological studies, urgent care reports/EKG's, skilled nursing records)? Report findings @ -No old charts were reviewed Differential Diagnosis (chest pain, altered mental status, abdominal pain women, abdominal pain men, vaginal bleeding, weakness, fever, dyspnea, syncope, headache, dizziness, GI bleed, back pain, seizure, CVA, palpatations, mental health, musculoskeletal)? @ -Cellulitis, abscess EKG interpreted by me (3pts min.). @ -As above X-rays interpreted by me (1pt min.). @ -None done CT interpreted by me (1pt min.). @ -None done U/S interpreted by me (1pt. min.). @ -None done What testing was considered but not performed or refused? (CT, X-rays, U/S, labs)? Why? @ -None What meds were considered but not given or refused? Why? @ -None Did you discuss the management of the patient with other professionals (professionals i.e. , PA, MULTIGRAPHER, lab, RT, psych nurse, social services, polymerization helper, teacher, personal banking officer, manager rn case)? Give summary @ -[facility] Dr. Barbosa Was smoking cessation discussed for >3mins.? @ -No Was critical care preformed (if so, how long)? @ -No Were there social determinants of health that impacted care today? How? (Homelessness, low income, unemployed, alcoholism, drug addiction, transportation, low edu. Level, literacy, decrease access to med. care, usp, rehab)? @ -No Was there de-escalation of care discussed even if they declined (Discuss DNR or withdrawal of care, Hospice)? DNR status @ -No What co-morbidities impacted this encounter? (DM, HTN, Smoking, COPD, CAD, Cancer, CVA, ARF, Chemo, Hep., AIDS, mental health diagnosis, sleep apnea, morbid obesity)? @ -Diabetes Was patient admitted / discharged? Hospital course, mention meds given and route, prescriptions, significant lab abnormalities, going to OR and other pertinent info. @ 47-year-old male with skin soft tissue infection left forearm extending from the wrist to the mid upper arm. No drainable abscess at this time. Patient has been on appropriate oral antibiotics and has failed treatment. Wound culture, blood culture, laboratory testing is been ordered. Patient is initiated on IV antibiotics. He will be admitted for inpatient treatment of abscess with cellulitis of the left arm. Undiagnosed new problem with uncertain prognosis? @ -No Drug Therapy requiring intensive monitoring for toxicity (Heparin, Nitro, Insulin, Cardizem)? @ -No Were any procedures done? @ -No Diagnosis/symptom? @ -Abscess, cellulitis Acute, or Chronic, or Acute on Chronic? @ acute Uncomplicated (without systemic symptoms) or Complicated (systemic symptoms)? @ complicated Side effects of treatment? @ -No Exacerbation, Progression, or Severe Exacerbation? @ -No Poses a threat to life or bodily function? How? (Chest pain, USA, SC, pneumonia, PE, COPD, DKA, ARF, appy, cholecystitis, CVA, Diverticulitis, Homicidal, Suicidal, threat to staff... and all critical care pts) @ -[yes, sepsis Disposition Clinical Impression: Failure of outpatient treatment, Cellulitis, Abscess Disposition: ADMITTED IP TO THIS [facility] Condition: Stable Is patient prescribed a controlled substance at d/c from ED?: No Referrals: None,Stated [Primary Care Provider] - 1-2 days Time of Disposition: 14:12
[2022-12-26] MEDS ORDERED: NALOXONE 0.4 MG/ML 1 ML VIAL IV PRN (14:13)
[2022-12-26 14:29] LABS: Basophils % (A) 0 %; Eosinophils # (A) 0.2 k/uL (0-0.7); Eosinophils % (A) 2 %; HCT 47.3 % (39.0-53.0); HGB 15.7 gm/dL (13.0-17.5); Lymphocytes % (A) 9 %; MCH 30.1 pg (25.0-35.0); MCHC 33.3 g/dL (31.0-37.0); MCV 90.5 fL (80.0-100.0); Mean Platelet Volume 7.5; Monocytes # (A) 0.6 k/uL (0-1.0); Monocytes % (A) 5 %; Neutrophils # (A) 9.7 k/uL (1.3-7.7); Neutrophils % (A) 84 %; Platelet Count 240 k/uL (150-450); RBC 5.23 m/uL (4.30-5.90); RDW 13.7 % (11.5-15.5); WBC 11.6 k/uL (3.8-10.6)
[2022-12-26] MEDS: SODIUM CHLORIDE 0.9% 1,000 ML IV SCH (14:33)
--- NOTE | 2022-12-26 14:36 | P.HPIM ---
History of Present Illness 45-year-old the female is being admitted for abscess of the left dorsal aspect of the forearm. Patient does have leukocytosis doesn't have any fever. Patient started having the cellulitis after he is was strong when insect about 5 days ago and was taking Keflex and Bactrim without any improvement in significant worsening patient is a diabetic. Patient had history of MRSA in the past. Patient received vancomycin and Rocephin. Wound cultures were obtained REVIEW OF SYSTEMS: CONSTITUTIONAL: No fever, no malaise, no fatigue. HEENT: No recent visual problems or hearing problems. Denied any sore throat. CARDIOVASCULAR: No chest pain, orthopnea, PND, no palpitations, no syncope. PULMONARY: No shortness of breath, no cough, no hemoptysis. GASTROINTESTINAL: No diarrhea, no nausea, no vomiting, no abdominal pain. NEUROLOGICAL: No headaches, no weakness, no numbness. HEMATOLOGICAL: Denies any bleeding or petechiae. GENITOURINARY: Denies any burning micturition, frequency, or urgency. MUSCULOSKELETAL/RHEUMATOLOGICAL: Denies any joint pain, swelling, or any muscle pain. ENDOCRINE: Denies any polyuria or polydipsia. The rest of the 14-point review of systems is negative. PHYSICAL EXAMINATION: GENERAL: The patient is alert and oriented x3, not in any acute distress. Well developed, well nourished. HEENT: Pupils are round and equally reacting to light. EOMI. No scleral icterus. No conjunctival pallor. Normocephalic, atraumatic. No pharyngeal erythema. No thyromegaly. CARDIOVASCULAR: S1 and S2 present. No murmurs, rubs, or gallops. PULMONARY: Chest is clear to auscultation, no wheezing or crackles. ABDOMEN: Soft, nontender, nondistended, normoactive bowel sounds. No palpable organomegaly. MUSCULOSKELETAL: No joint swelling or deformity. EXTREMITIES: No cyanosis, clubbing, or pedal edema. NEUROLOGICAL: Gross neurological examination did not reveal any focal deficits. SKIN: Redness involving much of the dorsal aspect of the forearm and dorsal aspect of the lower upper arm, and abscess of around 5 into 4 cm with an opening and drainage. Assessment and plan -Abscess with cellulitis: Patient regarding her on vancomycin general surgery will be consulted. Wound cultures will be obtained -Type 2 diabetes mellitus patient will be resumed on his home regimen along with sliding scale insulin DVT prophylaxis: Ambulation Past Medical History Past Medical History: Diabetes Mellitus Additional Past Medical History / Comment(s): varicose veins History of Any Multi-Drug Resistant Organisms: MRSA Date of last positivie culture/infection: 03/10/19 MDRO Source:: KNEE MRSA Past Surgical History: Back Surgery, Cholecystectomy, Hernia Repair Additional Past Surgical History / Comment(s): lipoma removed on back Past Anesthesia/Blood Transfusion Reactions: No Reported Reaction Past Psychological History: No Psychological Hx Reported Smoking Status: Never smoker Past Alcohol Use History: Rare Past Drug Use History: None Reported - Past Family History Mother Family Medical History: No Reported History Medications and Allergies Home Medications Medication Instructions Recorded Confirmed Type Ertugliflozin Pidolate [Steglatro] 15 mg PO DAILY 07/28/18 12/28/18 History Glimepiride [Amaryl] 1 mg PO BID 07/28/18 12/28/18 History Allergies Allergy/AdvReac Type Severity Reaction Status Date / Time pseudoephedrine HCl AdvReac DIZZY Verified 12/26/22 13:54 [From [facility]] Physical Exam Vitals: Vital Signs Temp Pulse Resp BP Pulse Ox 12/26/22 13:52 99.1 F 72 18 140/82 99 Intake and Output 12/25/22 12/26/22 12/26/22 22:59 06:59 14:59 Other: Weight 145.15 kg Results CBC & Chem 7: 12/26/22 14:07 Labs: Abnormal Lab Results - Last 24 Hours (Table) 12/26/22 Range/Units 14:07 WBC 11.6 H (3.8-10.6) k/uL Neutrophils # 9.7 H (1.3-7.7) k/uL
[2022-12-26 14:39] LABS: ALT 26 U/L (4-49); AST 27 U/L (17-59); African American GFR (CKD) >90 (>60 ml/min/1.73 sqM); Albumin 4.3 g/dL (3.5-5.0); Alkaline Phosphatase 53 U/L (38-126); Anion Gap 13 mmol/L; Blood Urea Nitrogen 14 mg/dL (9-20); Calcium 9.2 mg/dL (8.4-10.2); Carbon Dioxide 22 mmol/L (22-30); Chloride 108 mmol/L (98-107); Glucose 109 mg/dL (74-99); Non-African American GFR(CKD) >90 (>60 ml/min/1.73 sqM); Potassium 4.2 mmol/L (3.5-5.1); Sodium 143 mmol/L (137-145); Total Bilirubin 1.1 mg/dL (0.2-1.3); Total Protein 7.9 g/dL (6.3-8.2)
[2022-12-26 14:43] LABS: Partial Thromboplastin Time 28.3 sec (22.0-30.0); Prothrombin Time 10.4 sec (9.0-12.0)
[2022-12-26] MEDS ORDERED: VANCOMYCIN 2,500 MG in SODIUM CHLORIDE 0.9% 500 ML 500 ML IVPB ONE (15:00)
[2022-12-26 16:45] LABS: Glucose,Whole Blood 83 mg/dL (70-110)
--- NOTE | 2022-12-26 16:46 | P.GSCN ---
History of Present Illness Consult date: 12/26/22 History of present illness: Patient reports being bite on the left forearm from a bug or insect over 3 to 4 days ago. The next day he had redness that progressed to redness along the forearm. He went to urgent care and was given oral antibiotics. Within 24 hrs his symptoms worsened and was given IV abx at the urgent care center. He was directed to go to the ER if his symptoms were not improved; hence he presented to the hospital. WBC is elevated despite antibiotics. He is a diabetic. He has drainage along his arm. Plan for US of the arm. Cultures are pending. May have diet. Past Medical History Past Medical History: Diabetes Mellitus Additional Past Medical History / Comment(s): varicose veins History of Any Multi-Drug Resistant Organisms: MRSA Year Discovered:: 03/10/19 MDRO Source:: KNEE MRSA Past Surgical History: Back Surgery, Cholecystectomy, Hernia Repair Additional Past Surgical History / Comment(s): lipoma removed on back Past Anesthesia/Blood Transfusion Reactions: No Reported Reaction Smoking Status: Former smoker - Past Family History Mother Family Medical History: No Reported History Medications and Allergies Home Medications Medication Instructions Recorded Confirmed Type Cephalexin [Keflex] 1,000 mg PO Q12HR 12/26/22 12/26/22 History Sulfamethox-Tmp 800-160Mg [Bactrim 1 tab PO Q12HR 12/26/22 12/26/22 History DS 800-160 mg] Allergies Allergy/AdvReac Type Severity Reaction Status Date / Time pseudoephedrine HCl AdvReac DIZZY Verified 12/26/22 15:35 [From [facility]] Surgical - Exam Vital Signs Temp Pulse Resp BP Pulse Ox 99.1 F 72 18 140/82 99 12/26/22 13:52 12/26/22 13:52 12/26/22 13:52 12/26/22 13:52 12/26/22 13:52 Results - Labs 12/26/22 14:07 12/26/22 14:07 Abnormal Lab Results - Last 24 Hours (Table) 12/26/22 12/26/22 Range/Units 14:07 14:07 WBC 11.6 H (3.8-10.6) k/uL Neutrophils # 9.7 H (1.3-7.7) k/uL Chloride 108 H (98-107) mmol/L Creatinine 0.62 L (0.66-1.25) mg/dL Glucose 109 H (74-99) mg/dL Diabetes panel 12/26/22 Range/Units 14:07 Sodium 143 (137-145) mmol/L Potassium 4.2 (3.5-5.1) mmol/L Chloride 108 H (98-107) mmol/L Carbon Dioxide 22 (22-30) mmol/L BUN 14 (9-20) mg/dL Creatinine 0.62 L (0.66-1.25) mg/dL Glucose 109 H (74-99) mg/dL Calcium 9.2 (8.4-10.2) mg/dL AST 27 (17-59) U/L ALT 26 (4-49) U/L Alkaline Phosphatase 53 (38-126) U/L Total Protein 7.9 (6.3-8.2) g/dL Albumin 4.3 (3.5-5.0) g/dL Calcium panel 12/26/22 Range/Units 14:07 Calcium 9.2 (8.4-10.2) mg/dL Albumin 4.3 (3.5-5.0) g/dL Pituitary panel 12/26/22 Range/Units 14:07 Sodium 143 (137-145) mmol/L Potassium 4.2 (3.5-5.1) mmol/L Chloride 108 H (98-107) mmol/L Carbon Dioxide 22 (22-30) mmol/L BUN 14 (9-20) mg/dL Creatinine 0.62 L (0.66-1.25) mg/dL Glucose 109 H (74-99) mg/dL Calcium 9.2 (8.4-10.2) mg/dL Adrenal panel 12/26/22 Range/Units 14:07 Sodium 143 (137-145) mmol/L Potassium 4.2 (3.5-5.1) mmol/L Chloride 108 H (98-107) mmol/L Carbon Dioxide 22 (22-30) mmol/L BUN 14 (9-20) mg/dL Creatinine 0.62 L (0.66-1.25) mg/dL Glucose 109 H (74-99) mg/dL Calcium 9.2 (8.4-10.2) mg/dL Total Bilirubin 1.1 (0.2-1.3) mg/dL AST 27 (17-59) U/L ALT 26 (4-49) U/L Alkaline Phosphatase 53 (38-126) U/L Total Protein 7.9 (6.3-8.2) g/dL Albumin 4.3 (3.5-5.0) g/dL
[2022-12-26] MEDS: INSULIN ASPART (NovoLOG) 100 UNIT/ML VIAL SQ SCH ×2 (17:14→21:31)
[2022-12-26 20:47] LABS: Glucose,Whole Blood 88 mg/dL (70-110)
[2022-12-26] MEDS: GLIMEPIRIDE 1 MG TAB PO SCH (21:30)
[2022-12-26] MEDS ORDERED: VANCOMYCIN 2,000 MG in SODIUM CHLORIDE 0.9% 500 ML 500 ML IVPB SCH (22:00)
[2022-12-27] MEDS ORDERED: ACETAMINOPHEN TAB 325 MG TAB PO PRN (01:34)
[2022-12-27] MEDS ORDERED: ONDANSETRON 4 MG/2 ML VIAL IVP PRN (01:34)
[2022-12-27] MEDS: SODIUM CHLORIDE 0.9% 1,000 ML IV SCH ×2 (05:42→09:02)
[2022-12-27] MEDS: VANCOMYCIN 2,000 MG in SODIUM CHLORIDE 0.9% 500 ML 500 ML IVPB SCH ×3 (05:51→20:18)
[2022-12-27 06:03] LABS: Glucose,Whole Blood 93 mg/dL (70-110)
[2022-12-27] MEDS: INSULIN ASPART (NovoLOG) 100 UNIT/ML VIAL SQ SCH ×3 (06:06→16:50)
[2022-12-27 06:28] LABS: HCT 43.8 % (39.0-53.0); HGB 14.3 gm/dL (13.0-17.5); MCH 29.8 pg (25.0-35.0); MCHC 32.6 g/dL (31.0-37.0); MCV 91.4 fL (80.0-100.0); Mean Platelet Volume 7.7; Platelet Count 251 k/uL (150-450); RDW 13.6 % (11.5-15.5); WBC 9.5 k/uL (3.8-10.6)
[2022-12-27 06:37] LABS: African American GFR (CKD) >90 (>60 ml/min/1.73 sqM); Anion Gap 7 mmol/L; Blood Urea Nitrogen 9 mg/dL (9-20); Calcium 8.3 mg/dL (8.4-10.2); Carbon Dioxide 23 mmol/L (22-30); Chloride 107 mmol/L (98-107); Glucose 87 mg/dL (74-99); Non-African American GFR(CKD) >90 (>60 ml/min/1.73 sqM); Potassium 4.2 mmol/L (3.5-5.1); Sodium 137 mmol/L (137-145)
[2022-12-27] MEDS: PANTOPRAZOLE 40 MG TABLET PO SCH (06:51)
[2022-12-27] MEDS: NON FORMULARY DRUG (Ertugliflozin Pidolate [Steglatro] 15 MG Tablet) PO SCH (08:59)
[2022-12-27] MEDS: GLIMEPIRIDE 1 MG TAB PO SCH ×2 (09:01→19:00)
[2022-12-27 11:10] LABS: Glucose,Whole Blood 80 mg/dL (70-110)
--- NOTE | 2022-12-27 12:50 | P.PN ---
Subjective Progress Note Date: 12/27/22 The ports clinically doing better with decreased redness along the arm. Has mild swelling along the left hand. White blood cell count normal. Will check ultrasound of soft tissue for drainable abscess. Continue IV antibiotics. Objective - Vital Signs Vital signs: Vital Signs Temp 98.3 F 12/27/22 07:30 Pulse 51 L 12/27/22 07:30 Resp 18 12/27/22 07:30 BP 123/79 12/27/22 07:30 Pulse Ox 96 12/27/22 07:30 FiO2 Intake & Output 12/26/22 12/27/22 12/27/22 18:59 06:59 18:59 Weight 145.15 kg Other: # Voids 2 1 - Labs CBC & Chem 7: 12/27/22 05:23 12/27/22 05:23 Labs: Abnormal Lab Results - Last 24 Hours (Table) 12/26/22 12/26/22 12/27/22 Range/Units 14:07 14:07 05:23 WBC 11.6 H (3.8-10.6) k/uL Neutrophils # 9.7 H (1.3-7.7) k/uL Chloride 108 H (98-107) mmol/L Creatinine 0.62 L 0.56 L (0.66-1.25) mg/dL Glucose 109 H (74-99) mg/dL Calcium 8.3 L (8.4-10.2) mg/dL
--- NOTE | 2022-12-27 14:59 | P.PN ---
Subjective Progress Note Date: 12/27/22 45-year-old the female is being admitted for abscess of the left dorsal aspect of the forearm. Patient does have leukocytosis doesn't have any fever. Patient started having the cellulitis after he is was strong when insect about 5 days ago and was taking Keflex and Bactrim without any improvement in significant worsening patient is a diabetic. Patient had history of MRSA in the past. Patient received vancomycin and Rocephin. Wound cultures were obtained 12/27/2022 Patient remains on the mediacal floor receiving IV antibiotics with cultures pending of the left elbow abscess. Patient to possibly undergo I and D tomorrow with gen surgery, ultrasound of the abscess is ordered. The surrounding erythema has improved however there is significant induration around the abscess and tenderness. Infectious disease is following. Patient wants to DC home. White count remains normal at 9.5. Review of Systems Constitutional: Denied any fatigue denied any fever. Cardio vascular: denied any chest pain, palpitations Gastrointestinal: denied any nausea, vomiting, diarrhea Pulmonary: Denied any shortness of breath cough Neurologic denied any new focal deficits All inpatient medications were reviewed and appropriate changes in these medications as dictated in the interval history and assessment and plan. PHYSICAL EXAMINATION: GENERAL: The patient is alert and oriented x3, not in any acute distress. Well developed, well nourished. HEENT: Pupils are round and equally reacting to light. EOMI. No scleral icterus. No conjunctival pallor. Normocephalic, atraumatic. No pharyngeal erythema. No thyromegaly. CARDIOVASCULAR: S1 and S2 present. No murmurs, rubs, or gallops. PULMONARY: Chest is clear to auscultation, no wheezing or crackles. ABDOMEN: Soft, nontender, nondistended, normoactive bowel sounds. No palpable organomegaly. MUSCULOSKELETAL: No joint swelling or deformity. EXTREMITIES: No cyanosis, clubbing, or pedal edema. NEUROLOGICAL: Gross neurological examination did not reveal any focal deficits. SKIN: Redness involving much of the dorsal aspect of the forearm and dorsal aspect of the lower upper arm, and abscess of around 5 into 4 cm with an opening and drainage. Assessment and plan -Abscess with cellulitis: patient continues on IV vancomcyin with infectious di sease following the cultures, possible I and D of the abscess pending results of the ultrasound. General surgery following. -Type 2 diabetes mellitus patient will be resumed on his home regimen along with sliding scale insulin, blood glucose is controlled. DVT prophylaxis: Ambulation The impression and plan of care has been dictated by Shanna Argueta, Nurse Practitioner as directed. Dr. Familia MD I have performed a history and physical examination and medical decision making of this patient, discussed the same with the dictator, and agree with the dictators assessment and plan as written, documented as a scribe. Based on total visit time, I have performed more than 50% of this visit. Objective - Vital Signs Vital signs: Vital Signs Temp 98.3 F 12/27/22 07:30 Pulse 51 L 12/27/22 07:30 Resp 18 12/27/22 07:30 BP 123/79 12/27/22 07:30 Pulse Ox 96 12/27/22 07:30 FiO2 Intake & Output 12/26/22 12/27/22 12/27/22 18:59 06:59 18:59 Weight 145.15 kg Other: # Voids 2 1 - Labs CBC & Chem 7: 12/27/22 05:23 12/27/22 05:23 Labs: Abnormal Lab Results - Last 24 Hours (Table) 12/26/22 12/26/22 12/27/22 Range/Units 14:07 14:07 05:23 WBC 11.6 H (3.8-10.6) k/uL Neutrophils # 9.7 H (1.3-7.7) k/uL Chloride 108 H (98-107) mmol/L Creatinine 0.62 L 0.56 L (0.66-1.25) mg/dL Glucose 109 H (74-99) mg/dL Calcium 8.3 L (8.4-10.2) mg/dL Assessment and Plan Time with Patient: Less than 30
[2022-12-27] MEDS: SODIUM CHLORIDE 0.9% 500 ML 500 ML IV SCH (15:53)
[2022-12-27 16:36] LABS: Glucose,Whole Blood 65 mg/dL (70-110)
[2022-12-27 16:57] LABS: Glucose,Whole Blood 87 mg/dL (70-110)
--- NOTE | 2022-12-27 19:16 | P.CONS ---
History of Present Illness - Reason for Consult Consult date: 12/27/22 - History of Present Illness Patient is a 47-year-old male with a past medical significant for diabetes mellitus patient did have a history of right knee traumatic wound with secondary wound infection second MRSA back in 2019 presenting to the hospital for evaluation of pain swelling redness to left upper extremity patient mention he was working in the yard on the [employer] a week and had apparently noticed to have bite sting insect bite to the left forearm on the lateral aspect patient mention it becoming more swollen red and painful describes the pain to be throbbing about 2-3 out of 10 and worse with if the area gets bumped and no radiation also noticed to have increasing swelling redness involving the left forearm for the patient presented to the hospital on arrival to the ER patient did have a low-grade fever of 99.1 degree for night patient did have normal white count and normal kidney function local cultures were obtained as the area started to drain some purulent secretion patient was started on vancomycin infectious disease was consulted for further management of antibiotic therapy, patient prior to presentation to the hospital has been evaluated by primary care physician and has been treated with oral Keflex and Bactrim DS and did not have any improvement Past Medical History Past Medical History: Diabetes Mellitus Additional Past Medical History / Comment(s): varicose veins History of Any Multi-Drug Resistant Organisms: MRSA Year Discovered:: 03/10/19 MDRO Source:: KNEE MRSA Past Surgical History: Back Surgery, Cholecystectomy, Hernia Repair Additional Past Surgical History / Comment(s): lipoma removed on back Past Anesthesia/Blood Transfusion Reactions: No Reported Reaction Smoking Status: Former smoker - Past Family History Mother Family Medical History: No Reported History Medications and Allergies Home Medications Medication Instructions Recorded Confirmed Type Cephalexin [Keflex] 1,000 mg PO Q12HR 12/26/22 12/26/22 History Sulfamethox-Tmp 800-160Mg [Bactrim 1 tab PO Q12HR 12/26/22 12/26/22 History DS 800-160 mg] Allergies Allergy/AdvReac Type Severity Reaction Status Date / Time pseudoephedrine HCl AdvReac DIZZY Verified 12/26/22 15:35 [From [facility]] Physical Exam Vitals: Vital Signs Temp Pulse Pulse Resp BP BP Pulse Ox 12/27/22 07:30 98.3 F 51 L 18 123/79 96 12/27/22 02:00 98.7 F 59 L 16 132/85 98 12/26/22 20:00 97.9 F 64 16 129/78 99 12/26/22 15:56 98.8 F 69 18 162/96 97 12/26/22 15:55 98.1 F 76 14 142/96 99 12/26/22 15:24 98.0 F 76 14 142/96 12/26/22 13:52 99.1 F 72 18 140/82 99 Intake and Output 12/26/22 12/27/22 12/27/22 22:59 06:59 14:59 Other: # Voids 2 1 Weight 145.15 kg Results CBC & Chem 7: 12/27/22 05:23 12/27/22 05:23 Labs: Abnormal Lab Results - Last 24 Hours (Table) 12/26/22 12/26/22 12/27/22 Range/Units 14:07 14:07 05:23 WBC 11.6 H (3.8-10.6) k/uL Neutrophils # 9.7 H (1.3-7.7) k/uL Chloride 108 H (98-107) mmol/L Creatinine 0.62 L 0.56 L (0.66-1.25) mg/dL Glucose 109 H (74-99) mg/dL Calcium 8.3 L (8.4-10.2) mg/dL Assessment and Plan Plan: Patient presented to hospital with left forearm abscess and cellulitis failing outpatient oral Bactrim and Keflex therapy likely related to the gram-positive skin ruddy with a previous history of MRSA infection to the likely pathogen the area is draining spontaneously and the patient has been eval by general surgeon recommending no drainage at this point 2-vancomycin pharmacy to dose with a target trough of 15 while watching kidney function and Vanco trough closely. We will follow on clinical condition and cultures to further adjust medication if needed Thank you for this consultation we will follow the patient along with you
[2022-12-27 20:46] LABS: Glucose,Whole Blood 93 mg/dL (70-110)
[2022-12-28] MEDS: INSULIN ASPART (NovoLOG) 100 UNIT/ML VIAL SQ SCH ×5 (01:47→21:22)
[2022-12-28] MEDS: VANCOMYCIN 2,000 MG in SODIUM CHLORIDE 0.9% 500 ML 500 ML IVPB SCH ×3 (04:34→21:43)
[2022-12-28 05:42] LABS: Glucose,Whole Blood 118 mg/dL (70-110)
[2022-12-28] MEDS: PANTOPRAZOLE 40 MG TABLET PO SCH (06:45)
--- NOTE | 2022-12-28 07:35 | US ---
EXAMINATION TYPE: US extremity nonvasc mass LT DATE OF EXAM: 12/28/2022 COMPARISON: NONE CLINICAL INDICATION: Male, 47 years old with history of Cellulitis possible abscess, left forearm; Pt states recent bite or sting to left forearm- now has redness and oozing from site No evidence of fluid collection left posterior forearm- subcutaneous edema FINDINGS/IMPRESSION: Left posterior forearm subcutaneous edema without evidence for fluid collection to suggest abscess.
[2022-12-28] MEDS: GLIMEPIRIDE 1 MG TAB PO SCH ×2 (09:10→21:43)
[2022-12-28] MEDS: NON FORMULARY DRUG (Ertugliflozin Pidolate [Steglatro] 15 MG Tablet) PO SCH (09:15)
[2022-12-28] MEDS ORDERED: VANCOMYCIN TROUGH DUE 1 EACH MISC MISCELLANE ONE (11:00)
[2022-12-28 11:51] LABS: Glucose,Whole Blood 93 mg/dL (70-110)
[2022-12-28 12:22] LABS: African American GFR (CKD) >90 (>60 ml/min/1.73 sqM); Non-African American GFR(CKD) >90 (>60 ml/min/1.73 sqM)
--- NOTE | 2022-12-28 15:14 | P.PN ---
Subjective Progress Note Date: 12/28/22 CHIEF COMPLAINT: Left forearm abscess HISTORY OF PRESENT ILLNESS: Patient has decreased swelling and redness in the left forearm and hand. Ultrasound of the left results show left posterior forearm subcutaneous edema without evidence for fluid collection to suggest abscess. Afebrile. Culture growing presumptive staph aureus. WBC 9.5 PHYSICAL EXAM: VITAL SIGNS: Reviewed GENERAL: Well-developed in no acute distress. HEENT: No sclera icterus. Extraocular movements grossly intact. Moist buccal m ucosa. Head is atraumatic, normocephalic. Hears conversational speech. No nasal drainage. NECK: Supple without lymphadenopathy. CHEST: Non-labored respirations and equal bilateral excursions. CARDIOVASCULAR: Palpable 2+ radial pulses. ABDOMEN: Soft. Nondistended. Nontender. MUSCULOSKELETAL: No clubbing or cyanosis. NEUROLOGIC: No focal or lateralizing signs. Cranial nerves II through XII grossly intact. PSYCH: Appropriate affect. Alert and oriented to person, place and time. SKIN: Well perfused. Good skin turgor. Extremities: Left forearm cellulitis with ulcer. Mild drainage noted. Patient does have some pitting edema. Decreased erythema. Swelling and hand has decreased ASSESSMENT: 1. Left forearm cellulitis with ulcer. No evidence of abscess on ultrasound PLAN: -No surgical intervention planned -Discharge antibiotic per infectious disease -Patient can be discharged from surgical standpoint when medically cleared Physician Optics Technical Officer note has been reviewed by physician. Signing provider agrees with the documented findings, assessment, and plan of care. Objective - Vital Signs Vital signs: Vital Signs Temp 97.8 F 12/28/22 07:11 Pulse 50 L 12/28/22 09:10 Resp 18 12/28/22 09:10 BP 135/89 12/28/22 07:11 Pulse Ox 96 12/28/22 07:11 FiO2 Intake & Output 12/27/22 12/28/22 12/28/22 18:59 06:59 18:59 Other: # Voids 5 2 2 # Bowel Movements 1 - Labs CBC & Chem 7: 12/27/22 05:23 12/28/22 10:54 Labs: Abnormal Lab Results - Last 24 Hours (Table) 12/27/22 12/28/22 Range/Units 16:35 05:40 POC Glucose (mg/dL) 65 L 118 H (70-110) mg/dL Microbiology - Last 24 Hours (Table) 12/26/22 14:07 Blood Culture - Preliminary Blood 12/26/22 14:27 Gram Stain - Preliminary Arm - Left Wound Culture - Preliminary Presumptive Staph aureus
--- NOTE | 2022-12-28 16:40 | P.PN ---
Subjective Progress Note Date: 12/28/22 45-year-old the female is being admitted for abscess of the left dorsal aspect of the forearm. Patient does have leukocytosis doesn't have any fever. Patient started having the cellulitis after he is was strong when insect about 5 days ago and was taking Keflex and Bactrim without any improvement in significant worsening patient is a diabetic. Patient had history of MRSA in the past. Patient received vancomycin and Rocephin. Wound cultures were obtained 12/27/2022 Patient remains on the mediacal floor receiving IV antibiotics with cultures pending of the left elbow abscess. Patient to possibly undergo I and D tomorrow with gen surgery, ultrasound of the abscess is ordered. The surrounding erythema has improved however there is significant induration around the abscess and tenderness. Infectious disease is following. Patient wants to DC home. White count remains normal at 9.5. 12/28/2022 Patient is evaluated today and reports continued improvement in discomfort to the left elbow wound. Had ultrasound done with no definitive pocked of fluid to suggest abscess. The wound is draining. General surgery is not planning to drain the area. ID following and patient remains on IV vancomycin with cultures showing presumptive staph aureus. Remains afebrile. Review of Systems Constitutional: Denied any fatigue denied any fever. Cardio vascular: denied any chest pain, palpitations Gastrointestinal: denied any nausea, vomiting, diarrhea Pulmonary: Denied any shortness of breath cough Neurologic denied any new focal deficits All inpatient medications were reviewed and appropriate changes in these medications as dictated in the interval history and assessment and plan. PHYSICAL EXAMINATION: GENERAL: The patient is alert and oriented x3, not in any acute distress. Well developed, well nourished. HEENT: Pupils are round and equally reacting to light. EOMI. No scleral icterus. No conjunctival pallor. Normocephalic, atraumatic. No pharyngeal erythema. No thyromegaly. CARDIOVASCULAR: S1 and S2 present. No murmurs, rubs, or gallops. PULMONARY: Chest is clear to auscultation, no wheezing or crackles. ABDOMEN: Soft, nontender, nondistended, normoactive bowel sounds. No palpable organomegaly. MUSCULOSKELETAL: No joint swelling or deformity. EXTREMITIES: No cyanosis, clubbing, or pedal edema. NEUROLOGICAL: Gross neurological examination did not reveal any focal deficits. SKIN: Redness is significant improving to the dorsal aspect of the forearm and dorsal aspect of the lower upper arm, and abscess of around 5 into 4 cm with an opening and drainage. The redness and induration surrounding the wound are also improving. Assessment and plan -Abscess with cellulitis: patient continues on IV vancomcyin with infectious disease following the cultures, general surgery with no plans for surgical drainage at this time. cultures are showing MSSA preliminary and patient will be monitored overnight on IV antibiotics and will DC home tomorrow with final recommendations per infectious disease. -Type 2 diabetes mellitus patient will be resumed on his home regimen along with sliding scale insulin, blood glucose is controlled. -Sinus bradycardia -Obesity DVT prophylaxis: Ambulation GI prophylaxis: Protonix Full Code The impression and plan of care has been dictated by Shanna Argueta Nurse Practitioner as directed. Dr. Familia MD I have performed a history and physical examination and medical decision making of this patient, discussed the same with the dictator, and agree with the dictators assessment and plan as written, documented as a scribe. Based on total visit time, I have performed more than 50% of this visit. Objective - Vital Signs Vital signs: Vital Signs Temp 98.6 F 12/28/22 15:08 Pulse 56 L 12/28/22 15:08 Resp 17 12/28/22 15:08 BP 143/82 12/28/22 15:08 Pulse Ox 98 12/28/22 15:08 FiO2 Intake & Output 12/27/22 12/28/22 12/28/22 18:59 06:59 18:59 Other: # Voids 5 2 2 # Bowel Movements 1 - Labs CBC & Chem 7: 12/27/22 05:23 12/28/22 10:54 Labs: Abnormal Lab Results - Last 24 Hours (Table) 12/27/22 12/28/22 12/28/22 Range/Units 16:35 05:40 10:54 Creatinine 0.61 L (0.66-1.25) mg/dL POC Glucose (mg/dL) 65 L 118 H (70-110) mg/dL Microbiology - Last 24 Hours (Table) 12/26/22 14:07 Blood Culture - Preliminary Blood 12/26/22 14:27 Gram Stain - Preliminary Arm - Left Wound Culture - Preliminary Presumptive Staph aureus Assessment and Plan Time with Patient: Less than 30
[2022-12-28 17:20] LABS: Glucose,Whole Blood 110 mg/dL (70-110)
[2022-12-28 21:17] LABS: Glucose,Whole Blood 116 mg/dL (70-110)
[2022-12-28] MEDS: SODIUM CHLORIDE 0.9% 500 ML 500 ML IV SCH (21:44)
--- NOTE | 2022-12-28 22:17 | P.PN ---
Subjective Progress Note Date: 12/28/22 Principal diagnosis: Left arm abscess/cellulitis Patient is a 47-year-old male presenting to the hospital with left forearm pain swelling and redness concerning for left upper extremity abscess and cellulitis with spontaneous drainage draining purulent material culture positive for Staph aureus. On today's evaluation that is 12/28/2021 patient denies having any fever or any chills patient left upper extremity swelling and redness has decreased still have some drainage denies any nausea vomiting abdominal pain or diarrhea Objective - Vital Signs Vital signs: Vital Signs Temp 97.8 F 12/28/22 07:11 Pulse 50 L 12/28/22 09:10 Resp 18 12/28/22 09:10 BP 135/89 12/28/22 07:11 Pulse Ox 96 12/28/22 07:11 FiO2 Intake & Output 12/27/22 12/28/22 12/28/22 18:59 06:59 18:59 Other: # Voids 5 2 # Bowel Movements 1 - Exam GENERAL DESCRIPTION: Middle-age male lying in bed in no distress RESPIRATORY SYSTEM: Unlabored breathing , decreased breath sounds at bases HEART: S1 S2 regular rate and rhythm ,no loud murmurs ABDOMEN: Soft , no tenderness EXTREMITIES: Left upper arm swelling redness is slightly decreased did have area of induration and was noticed to have purulent drainage on pressure - Labs CBC & Chem 7: 12/27/22 05:23 12/28/22 10:54 Labs: Abnormal Lab Results - Last 24 Hours (Table) 12/27/22 12/28/22 Range/Units 16:35 05:40 POC Glucose (mg/dL) 65 L 118 H (70-110) mg/dL Microbiology - Last 24 Hours (Table) 12/26/22 14:07 Blood Culture - Preliminary Blood 12/26/22 14:27 Gram Stain - Preliminary Arm - Left Wound Culture - Preliminary Presumptive Staph aureus Assessment and Plan (1) Abscess of left arm Current Visit: Yes Status: Acute Code(s): L02.414 - CUTANEOUS ABSCESS OF LEFT UPPER LIMB SNOMED Code(s): 25958655647987135 Plan: Patient presented to hospital with left forearm abscess and cellulitis failing outpatient oral Bactrim and Keflex therapy likely related to the gram-positive skin ruddy with a previous history of MRSA infection to the likely pathogen the area is draining spontaneously and the patient has been eval by general surgeon recommending no drainage at this point 2-Patient left upper arm cultures are currently growing staph aureus with sensitivities pending we will continue the patient on vancomycin pharmacy to dose with a target trough of 15 while watching kidney function and Vanco trough closely. Time with Patient: Less than 30
[2022-12-29 02:29] VITALS: RESP 16
[2022-12-29 05:15] LABS: Glucose,Whole Blood 104 mg/dL (70-110)
[2022-12-29] MEDS: INSULIN ASPART (NovoLOG) 100 UNIT/ML VIAL SQ SCH (05:17)
[2022-12-29] MEDS: PANTOPRAZOLE 40 MG TABLET PO SCH (06:22)
[2022-12-29 07:45] LABS: African American GFR (CKD) >90 (>60 ml/min/1.73 sqM); Non-African American GFR(CKD) >90 (>60 ml/min/1.73 sqM)
[2022-12-29 08:00] VITALS: BP 120/80; PULSE 53; TEMP 97.9
[2022-12-29] MEDS: VANCOMYCIN 2,000 MG in SODIUM CHLORIDE 0.9% 500 ML 500 ML IVPB SCH (08:56)
[2022-12-29] MEDS: GLIMEPIRIDE 1 MG TAB PO SCH (08:57)
--- NOTE | 2022-12-29 12:06 | P.PN ---
Subjective Progress Note Date: 12/29/22 CHIEF COMPLAINT: Left forearm abscess HISTORY OF PRESENT ILLNESS: Patient has decreased swelling and redness in the left forearm. Ultrasound of the left results show left posterior forearm subcutaneous edema without evidence for fluid collection to suggest abscess. Afebrile. Culture growing presumptive staph aureus. WBC 9.5 PHYSICAL EXAM: VITAL SIGNS: Reviewed GENERAL: Well-developed in no acute distress. HEENT: No sclera icterus. Extraocular movements grossly intact. Moist buccal mucosa. Head is atraumatic, normocephalic. Hears conversational speech. No nasal drainage. NECK: Supple without lymphadenopathy. CHEST: Non-labored respirations and equal bilateral excursions. CARDIOVASCULAR: Palpable 2+ radial pulses. ABDOMEN: Soft. Nondistended. Nontender. MUSCULOSKELETAL: No clubbing or cyanosis. NEUROLOGIC: No focal or lateralizing signs. Cranial nerves II through XII grossly intact. PSYCH: Appropriate affect. Alert and oriented to person, place and time. SKIN: Well perfused. Good skin turgor. Extremities: Left forearm cellulitis with ulcer. Mild drainage noted from ulcer. small area of induration around ulcer. Decreased erythema. ASSESSMENT: 1. Left forearm cellulitis with ulcer. No evidence of abscess on ultrasound PLAN: -No surgical intervention planned -Discharge antibiotic per infectious disease -Patient can be discharged from surgical standpoint when medically cleared Physician Flight Software Test Engineer note has been reviewed by physician. Signing provider agrees with the documented findings, assessment, and plan of care. Objective - Vital Signs Vital signs: Vital Signs Temp 97.9 F 12/29/22 07:59 Pulse 53 L 12/29/22 08:00 Resp 16 12/29/22 08:00 BP 120/80 12/29/22 07:59 Pulse Ox 96 12/29/22 07:59 FiO2 Intake & Output 12/28/22 12/29/22 12/29/22 18:59 06:59 18:59 Intake Total 118 400 Balance 118 400 Intake: Oral 118 400 Other: # Voids 2 1 - Labs CBC & Chem 7: 12/27/22 05:23 12/29/22 07:00 Labs: Abnormal Lab Results - Last 24 Hours (Table) 12/28/22 12/28/22 12/29/22 Range/Units 10:54 21:15 07:00 Creatinine 0.61 L 0.57 L (0.66-1.25) mg/dL POC Glucose (mg/dL) 116 H (70-110) mg/dL Microbiology - Last 24 Hours (Table) 12/26/22 14:27 Gram Stain - Preliminary Arm - Left Wound Culture - Preliminary Presumptive Staph aureus Staphylococcus aureus 12/26/22 14:07 Blood Culture - Preliminary Blood
[2022-12-29 12:31] LABS: Glucose,Whole Blood 83 mg/dL (70-110)
[2022-12-29] MEDS: NON FORMULARY DRUG (Ertugliflozin Pidolate [Steglatro] 15 MG Tablet) PO SCH (12:34)
--- NOTE | 2022-12-30 14:10 | P.DS ---
Providers Date of admission: 12/26/22 14:13 Expected date of discharge: 12/29/22 Attending physician: Shen Barbosa Consults: 12/26/22 14:13 Consult Physician Routine Consulting Provider: Aime Givens Consult Reason/Comments: Cellulitis Do you want consulting provider notified?: Yes 12/26/22 14:38 Consult Physician Routine Consulting Provider: Eloisa Patterson Consult Reason/Comments: Abscess in the left arm Do you want consulting provider notified?: Yes Primary care physician: Stated None Hospital Course: Final diagnosis -Left forearm Abscess with cellulitis, present on admission -Type 2 diabetes mellitus -Sinus bradycardia -Obesity -DVT prophylaxis -GI prophylaxis -Full Code Discharge disposition Patient is being discharged in a stable condition with guarded prognosis to home. Patient will follow-up with Dr. Daniel Marie in the outpatient setting upon discharge. Patient is to continue with oral Keflex 4 times daily for 10 days and close outpatient follow-up with infectious disease as scheduled. Total time taken is greater than 35 minutes. Hospital course This is a 47-year-old male who was recently admitted with left dorsal aspect of the forearm abscess with cellulitis and evaluated by infectious disease along with general surgery. Patient had CT and had some drainage noted of the left forearm with no plans for surgical intervention and had follow-up repeat CT showing no abscess collection. Cultures finalized showing staph aureus with sensitivities and infectious disease recommending Keflex 500 mg 4 times daily for the next 10 days with close outpatient follow-up. Patient to continue with local wound care with daily dressing changes or is becoming soiled and close outpatient follow-up. Patient has been cleared by consultations. Please refer to consultation notes for further HPI. Currently no reports of chest pain, shortness of breath, or palpitations. Patient is afebrile. No reports of nausea or vomiting and patient is tolerating diet. Patient will be discharged home today. Physical exam: Gen: This is a 47-year-old male who is awake, alert and oriented 3, well- developed, well-nourished HEENT: Head is atraumatic, normocephalic. Pupils equal, round. Sclerae is anicteric. NECK: Supple. No JVD. No lymphadenopathy. No thyromegaly. LUNGS: Clear to auscultation. No wheezes or rhonchi. No intercostal ret ractions. HEART: Regular rate and rhythm. No murmur. ABDOMEN: Soft. Bowel sounds are present. No masses. No tenderness. EXTREMITIES: No pedal edema. No calf tenderness. Left arm dressing is dry and intact NEUROLOGICAL: Patient is awake, alert and oriented x3. Cranial nerves 2 through 12 are grossly intact. Please refer to medication reconciliation sheet for a list of medications. The impression and plan of care has been dictated by Cathy Cabello, Nurse Practitioner as directed. Dr. Familia MD I have performed a history and examination and MDM of this patient, discussed the same with the dictator, and agree with the dictator's assessment and plan as written ,documented as a scribe. Based on total visit time, I have performed more than 50% of the visit. Patient Condition at Discharge: Stable Plan - Discharge Summary Discharge Rx Participant: No New Discharge Prescriptions: New Acetaminophen Tab [Tylenol] 650 mg PO Q6HR PRN tab PRN Reason: Fever And/ Or Pain Glimepiride [Amaryl] 1 mg PO BID 30 Days #60 tab Ertugliflozin Pidolate [Steglatro] 15 mg PO DAILY Changed Cephalexin [Keflex] 500 mg PO Q6H 10 Days #40 cap Discontinued Sulfamethox-Tmp 800-160Mg [Bactrim DS 800-160 mg] 1 tab PO Q12HR Discharge Medication List Acetaminophen Tab [Tylenol] 650 mg PO Q6HR PRN tab 12/29/22 [Rx] Cephalexin [Keflex] 500 mg PO Q6H 10 Days #40 cap 12/29/22 [Rx] Ertugliflozin Pidolate [Steglatro] 15 mg PO DAILY 12/29/22 [Rx] Glimepiride [Amaryl] 1 mg PO BID 30 Days #60 tab 12/29/22 [Rx] Follow up Appointment(s)/Referral(s): Eloisa Patterson MD [STAFF PHYSICIAN] - As Needed Candis Rodriguez MD [STAFF PHYSICIAN] - 1 Week (please call for an appointment ) Aime Givens MD [STAFF PHYSICIAN] - 01/12/23 3:00 pm Patient Instructions/Handouts: Wound Infection (DC), Cellulitis (GEN) Activity/Diet/Wound Care/Special Instructions: ok for dc after vanco finished Activity Limited until follow-up Follow-up with primary care provider on discharge to establish Follow-up with general surgery outpatient Follow-up infectious disease outpatient in one week Continue with local wound care Continue with medications as prescribed Discharge Disposition: HOME SELF-CARE
== END 2022-12-29 14:20 | disposition home or self-care (01) | DRG 603 ==
LOC: EC 13:41 → 4SSUR 14:13 → 6NMEDSUR 12-28 18:09
PROVIDERS: ADMIT Internal Medicine; ATTEND Internal Medicine
DX: L03.114 Cellulitis of left upper limb (principal); Z68.41 Body mass index [BMI] 40.0-44.9, adult; E11.9 Type 2 diabetes mellitus without complications; E66.9 Obesity, unspecified; B95.61 Methicillin susceptible Staphylococcus aureus infection as the cause of diseases classified elsewhere; L98.499 Non-pressure chronic ulcer of skin of other sites with unspecified severity; R00.1 Bradycardia, unspecified; S50.862A Insect bite (nonvenomous) of left forearm, initial encounter; W57.XXXA Bitten or stung by nonvenomous insect and other nonvenomous arthropods, initial encounter; L02.414 Cutaneous abscess of left upper limb; Z86.14 Personal history of Methicillin resistant Staphylococcus aureus infection; Z79.84 Long term (current) use of oral hypoglycemic drugs; Z88.8 Allergy status to other drugs, medicaments and biological substances; Z87.891 Personal history of nicotine dependence
CPT/HCPCS: 36415; 80048; 80053; 80202; 82565; 83605; 85025; 85027; 85610; 85730; 87040; 87070; 87205; 96365; 96367; 99284